=== PATIENT | male | born 1960 | race Caucasian/White ===

== ENCOUNTER 2017-11-25 16:15 | Observation (INO) ==
[2017-11-25] MEDS ORDERED: Nitroglycerin 1 INCH/GM PACKET TP ONE (16:30)
[2017-11-25] MEDS ORDERED: Aspirin 81 MG TAB.CHEW PO ONE (16:30)
[2017-11-25] MEDS ORDERED: Ondansetron 4 MG/2 ML VIAL IVP ONE (16:31)
--- NOTE | 2017-11-25 16:33 | Emergency Department Note ---
Disposition Clinical Impression: Chest pain Qualifiers: Chest pain type: unspecified Qualified Code(s): R07.9 - Chest pain, unspecified Hypertension Qualifiers: Hypertension type: unspecified Qualified Code(s): I10 - Essential (primary) hypertension Disposition: Admitted As Inpatient Condition: Fair Forms: ED Satisfaction Letter Chest Pain HPI - General Chief Complaint: ED Chest Pain Stated Complaint: Heart issues Time Seen by Provider: 11/25/17 16:19 Source: patient Mode of arrival: ambulatory Limitations: no limitations Vital Signs Reviewed: Yes Nursing Notes Reviewed: Yes - History of Present Illness HPI Narrative: 57-year-old male with a history of hypertension and tobacco use presents for evaluation of "heart issues". Patient states that he had left-sided nonexertional chest pressure last night that lasted a few moments with associated left arm numbness. Patient states that he noted this morning that he did not feel right. Patient's felt nauseous. Patient denies any vomiting or diaphoresis. Patient denies any shortness of breath. Patient states that he has never had a heart attack or stents placed. Patient's states he has never been worked up in the past related to his heart. Patient seen his's urgent care doctor earlier today was noted have high blood pressure. Patient denies any fevers or cough. Patient currently denies any chest pain. Severity scale (1-10): 3 - Related Data Home Medications Medication Instructions Recorded Confirmed Amlodipine Besylate 10 mg PO DAILY 09/14/16 09/14/16 Atenolol [Tenormin] 50 mg PO DAILY 09/14/16 09/14/16 Celecoxib [Celebrex] 200 mg PO DAILY 09/14/16 09/14/16 EPINEPHrine [Epipen] 0.3 mg IM AD PRN 09/14/16 09/14/16 Gemfibrozil [Lopid] 600 mg PO BID 09/14/16 09/14/16 Omeprazole [PriLOSEC] 20 mg PO BID 09/14/16 09/14/16 Solifenacin Succinate [Vesicare] 10 mg PO DAILY 09/14/16 09/14/16 Allergies Allergy/AdvReac Type Severity Reaction Status Date / Time LORENZA Inhibitors Allergy Swelling Verified 11/25/17 16:27 of Lip/Tongue/Throat All systems ED: reviewed and negative except as stated. Constitutional: Reports: as per HPI. Denies: fever Eyes: Reports: as per HPI ENT ED: Reports: as per HPI Cardiovascular: Reports: as per HPI, chest pain Respiratory: Reports: as per HPI. Denies: cough, dyspnea Gastrointestinal: Reports: as per HPI, nausea. Denies: abdominal pain, vomiting Genitourinary: Reports: as per HPI Musculoskeletal: Reports: as per HPI Integumentary: Reports: as per HPI Neurological: Reports: as per HPI Psychiatric: Reports: as per HPI Endocrine: Reports: as per HPI Hematological/Lymphatic: Reports: as per HPI Chest Pain PMH - Past Medical History Medical history: Reports: hyperlipidemia, hypertension, kidney stones, other Surgical history: Reports: other Psychiatric history: Reports: no psych history - Social History Smoking Status: Current every day smoker Alcohol use: Reports: rarely Drug use: Reports: none Physical Exam - General Limitations: no limitations General appearance: alert, in no apparent distress, obese - Head Head exam: atraumatic, normocephalic, normal inspection - Eye Eye exam: Present: normal appearance, PERRL, EOMI - ENT ENT exam: normal exam, normal oropharynx, mucous membranes moist - Neck Neck exam: Present: normal inspection - Chest Chest inspection: Present: normal inspection, symmetric chest wall rise - Respiratory Respiratory exam: Present: normal lung sounds bilaterally. Absent: respiratory distress - Cardiovascular Cardiovascular exam: Present: regular rate. Absent: systolic murmur - Abdominal Exam Abdominal exam: Present: soft, Non-Tender. Absent: tenderness - Extremities Exam Extremities exam: Present: normal inspection. Absent: pedal edema - Expanded Lower Extremity Exam Neurovascular/Tendon exam: Present: normal capillary refill - Neurological Exam Neurological exam: Present: alert - Psychiatric Psychiatric exam: Present: normal affect, normal mood - Skin Skin exam: Present: warm, dry, intact, normal color Course Course Narrative: Patient seen and examined. Patient appears to be in no acute distress. Patient does have a concerning history for ACS given left-sided chest pressure last night with associated nausea this morning. The patient does have risk factors. Patient will get cardiopulmonary evaluation. Disposition pending. Vital Signs Temperature 98.2 F 11/25/17 16:18 Pulse Rate 85 11/25/17 16:18 Respiratory Rate 16 11/25/17 16:18 Blood Pressure 156/110 11/25/17 16:18 O2 Sat by Pulse Oximetry 99 11/25/17 16:18 Temperature 98.2 F 11/25/17 16:18 Pulse Rate 85 11/25/17 16:18 Respiratory Rate 16 11/25/17 16:18 Blood Pressure 156/110 11/25/17 16:18 O2 Sat by Pulse Oximetry 99 11/25/17 16:18 Oxygen Delivery Oxygen Delivery Room Air Chest Pain - Lab Data Result diagrams: 11/25/17 16:39 11/25/17 16:39 Lab Results 11/25/17 11/25/17 Range/Units 16:39 16:39 WBC 8.9 (4.3-11.1) K/mcL RBC 5.97 H (4.19-5.50) M/mcL Hgb 16.4 (12.9-16.9) g/dL Hct 48.7 (37.5-50.1) % MCV 81.6 L (83.0-100.0) fL MCH 27.5 L (28.0-33.3) pg MCHC 33.7 (31.6-35.5) g/dL RDW 13.4 (11.5-14.5) % Plt Count 375 (140-400) K/mcL MPV 10.3 (9.4-12.4) fL Immature Gran % 0.3 (0-4) % Seg Neutrophils % 52.1 % Lymphocytes % 30.8 % Monocytes % 11.2 % Eosinophils % 4.3 % Basophils % 1.3 % Neutrophils # 4.6 (1.6-8.9) K/mcL Lymphocytes # 2.8 (0.6-4.6) K/mcL Monocytes # 1.0 (0.0-1.3) K/mcL Eosinophils # 0.4 (0.0-0.6) K/mcL Basophils # 0.1 (0.0-0.2) K/mcL Sodium 136 (136-145) mEq/L Potassium 3.7 (3.5-5.1) mEq/L Chloride 105 (98-107) mEq/L Carbon Dioxide 24 (23-29) mEq/L BUN 16 (6-20) mg/dL Creatinine 1.00 (0.70-1.30) mg/dL Est GFR ( Amer) > 60 (> 60) Est GFR (Non-Af Amer) > 60 (> 60) BUN/Creatinine Ratio 16 (6-26) Glucose 108 H (70-105) mg/dL Calculated Osmolality 284 (280-300) Calcium 9.4 (8.6-10.3) mg/dL - EKG Data EKG attestation: Yes I reviewed and interpreted this EKG. EKG shows normal: sinus rhythm Rate: normal Rhythm: NSR [place]/QRS: normal Interpretation: no acute changes, nonspecific ST-T wave changes Monty - Monty Situation: Demographics Background: Presenting Complaint Assessment: Vital Signs, Course and respsone to treatment, Patient/Family Expectation Recommendation: Barrier(s) to disposition, Recommendation based on pending studies, treatments, or consults S.Delvis Report Given to: Dr. Antonio Millan Repor Time: 17:08
[2017-11-25 16:49] LABS: Basophils # 0.1 K/mcL (0.0-0.2); Basophils % 1.3 %; Eosinophils # 0.4 K/mcL (0.0-0.6); Eosinophils % 4.3 %; Hematocrit 48.7 % (37.5-50.1); Hemoglobin 16.4 g/dL (12.9-16.9); Immature Granulocytes % 0.3 % (0-4); Lymphocytes # 2.8 K/mcL (0.6-4.6); Lymphocytes % 30.8 %; Mean Corpuscular HGB Conc 33.7 g/dL (31.6-35.5); Mean Corpuscular Hemoglobin 27.5 pg (28.0-33.3); Mean Corpuscular Volume 81.6 fL (83.0-100.0); Mean Platelet Volume 10.3 fL (9.4-12.4); Monocytes % 11.2 %; Neutrophils # 4.6 K/mcL (1.6-8.9); Platelet Count 375 K/mcL (140-400); Red Blood Count 5.97 M/mcL (4.19-5.50); Red Cell Distribution Width 13.4 % (11.5-14.5); Segmented Neutrophils % 52.1 %
--- NOTE | 2017-11-25 16:56 | Emergency Department Note ---
START Narrative - START START: I examined this patient and my medical decision-making was reviewed with the Resident Physician. I agree with the documented findings, disposition and treatment plan as described except to the extent set forth below. 57-year-old male presents emergency room for chest discomfort. So radiates to the left shoulder and left arm. Social but nausea. States he does not feel right. He has no documented coronary history. EKG did not show any significant findings. Patient saws urgent care doctor today and noted his blood pressure being elevated. He presents to the ER with the above complaints. Patient will likely benefit from admission for ACS rule out and stress test.
[2017-11-25 17:03] LABS: BUN/Creatinine Ratio 16 (6-26); Blood Urea Nitrogen 16 mg/dL (6-20); Calcium 9.4 mg/dL (8.6-10.3); Carbon Dioxide 24 mEq/L (23-29); Chloride 105 mEq/L (98-107); Glucose 108 mg/dL (70-105); Osmolality,Calculated 284 (280-300); Potassium 3.7 mEq/L (3.5-5.1); Sodium 136 mEq/L (136-145); eGFR For African Americans > 60 (> 60); eGFR For Non-African Americans > 60 (> 60)
[2017-11-25] MEDS ORDERED: Aspirin 81 MG TAB.CHEW ONE (17:13)
[2017-11-25] MEDS ORDERED: GI Cocktail 40 ML EACH PO ONE (17:43)
[2017-11-25] MEDS ORDERED: Naloxone 0.4 MG/ML INJ IVP PRN (17:43)
[2017-11-25] MEDS ORDERED: Acetaminophen 325 MG TABLET PO PRN (17:43)
--- NOTE | 2017-11-25 17:49 | Internal Med History&Physical ---
Date of Encounter: 11/25/17 Time of Encounter: 17:48 Assessment and Plan (1) Chest pain Current visit: Yes Status: Acute Atypical, r/o cardiac cause, patient described GERD sheree symptoms but has persistent nausea and light headedness with significant risk factors Initial EKG with no TW inversion or ST elevation or depression Initial troponin is negative Obtain ECHO and stress test am, NPO Continue ASA, check lipid panel a.m, encourage tobacco cessation No indication for cardiology eval at this time Qualifiers: Chest pain type: unspecified Qualified Code(s): R07.9 - Chest pain, unspecified (2) Tobacco abuse Current visit: Yes Status: Chronic NRT Cessation counselling provided (3) Morbid obesity with BMI of 45.0-49.9, adult Current visit: Yes Status: Chronic lifestyle changes (4) Hypertension Current visit: Yes Status: Chronic continue home meds Qualifiers: Hypertension type: unspecified Qualified Code(s): I10 - Essential (primary ) hypertension (5) GERD (gastroesophageal reflux disease) Current visit: Yes Status: Chronic start on daily PPI Give GI cocktail now Qualifiers: Esophagitis presence: without esophagitis Qualified Code(s): K21.9 - Gastro -esophageal reflux disease without esophagitis (6) DVT prophylaxis Current visit: Yes Status: Acute SQ heparin Internal Medicine - H&P: HPI Chief complaint: Lightheadedness. Admitted From: Home Plans for Post Hospital Care: Home History of present illness: Mr. Smith is a 57 year old male with heavy tobacco use, morbid obesity, hyperlipidemia, and hypertension. He presents to the ER with complaints of chest pain which she had one episode of last night while at rest, associated with lightheadedness and nausea. Patient reports chest pain was sharp and non- radiating and resolved spontaneously. No known relieving or aggravating factors. No associated diaphoresis or shortness of breath. He reports at work this morning, he started to feel lightheaded, associated with nausea and one episode of vomiting. The patient attributes the symptoms to consumption of onions. He has a history of GERD and he believes he is having reflux as a result of the denies had last night. He denies cough, dyspnea on exertion or at rest, or leg swelling. He has no abdominal pain. He has no neurologic, urologic symptoms. No change in bowel or urinary habits. He denies illicit drug use, smokes 1.5 packs of cigarette daily. He denies significant family hx of cardiac disease Workup in the ER was unremarkable. EKG reviewed personally by me with no ST segment changes. Patient to be placed in observation due to his multiple risk factors for coronary artery disease, he will be worked up for chest pain to rule out acute coronary syndrome. He is hemodynamically stable at this time. He is chest pain -free at this time. Past Med Surg Social Fam HX - Past Medical History Medical history: hyperlipidemia, hypertension, kidney stones, other Psychiatric history: no psych history - Past Surgical History Surgical History: other - Social History Smoking Status: Current every day smoker Smokeless Tobacco Status: No Alcohol use: rarely Drug use: none - Family History Mother Living Status: Still Living Hx Family Cardiac Disorders: No Hx Family Respiratory Disorders: No Hx Family Cancer: No Hx Family GI Disorders: No Hx Family Endocrine Disorder: No Hx Family Neuromuscular Disorders: No Hx Family Neurologic Disorders: No Hx Family HEENT Disorders: No Hx Family Autoimmune Disorders: No Father Living Status: Hx Family Cardiac Disorders: Yes (CHF) Hx Family Respiratory Disorders: No Hx Family Cancer: No Hx Family GI Disorders: No Hx Family Endocrine Disorder: Yes (Dm) Hx Family Neuromuscular Disorders: No Hx Family Neurologic Disorders: No Hx Family HEENT Disorders: No Hx Family Autoimmune Disorders: No Internal Medicine - H&P: Meds Amlodipine Besylate 10 mg PO DAILY 09/14/16 [History] Atenolol [Tenormin] 50 mg PO DAILY 09/14/16 [History] Celecoxib [Celebrex] 200 mg PO DAILY 09/14/16 [History] Gemfibrozil [Lopid] 600 mg PO BID 09/14/16 [History] Solifenacin Succinate [Vesicare] 10 mg PO DAILY 09/14/16 [History] Cetirizine HCl [Zyrtec] 10 mg PO DAILY 11/25/17 [History] Losartan/Hydrochlorothiazide [Hyzaar 100-25 Tablet] 1 each PO DAILY 11/25/17 [ History] 3 Allergy/AdvReac Type Severity Reaction Status Date / Time LORENZA Inhibitors Allergy Swelling Verified 11/25/17 16:27 of Lip/Tongue/Throat All Systems PM: A 10-system review of systems was performed and is negative for pertinent findings except as documented above in the HPI. - Constitutional Constitutional: no chills, no fever(s), no night sweats - EENT Eyes: no change in vision, no discharge, no pain, no photophobia Ears: no ear discharge, no ear pain, no tinnitus Nose, mouth and throat: no dysphagia, no nasal discharge, no neck pain, no sore throat - Cardiovascular Cardiovascular ROS IM: as per HPI - Respiratory Respiratory: as per HPI - Gastrointestinal Gastrointestinal: as per HPI - Musculoskeletal Musculoskeletal ROS IM: no numbness, no tingling - Integumentary Integumentary IM: no rash, no unusual bruising - Neurological Neurological ROS: no confusion, no convulsions, no focal weakness, no numbness, no tingling, no tremor(s) - Hematologic/Lymphatic Hematologic/Lymphatic: no easy bruising - Constitutional Vitals: Temp Pulse Resp BP Pulse Ox 98.2 F 89 16 154/99 94 11/25/17 17:47 11/25/17 17:47 11/25/17 17:47 11/25/17 17:47 11/25/17 17:47 General appearance: Present: A&O X 3, morbidly obese, no acute distress - Head Head exam: Present: atraumatic, normocephalic - Eye Eye exam: Present: PERRL, conjuntiva pink, sclera anicteric Pupils: Present: PERRL - Neck Neck exam general surgery: Present: supple, trachea midline. Absent: lymphadenopathy - Respiratory Respiratory exam: Present: CTAB. Absent: accessory muscle use, rales, rhonchi, wheezes - Cardiovascular Cardiovascular exam: Present: RRR, +S1, +S2. Absent: diastolic murmur, gallop, rubs, systolic murmur - GI/Abdominal GI/Abdominal exam: Present: normal bowel sounds, soft, no peritoneal signs. Absent: distended, tenderness - Extremities Exam Extremities exam: Present: warm, radial pulses palpable and symmetrical. Absent : calf tenderness, cyanotic, pedal edema - Neurological Exam Neurological exam: Present: alert, CN II-XII intact, oriented X3, no focal deficits. Absent: pronater drift, facial droop, speech deficit - Skin Skin exam: Present: dry, intact Internal Med - H&P Results - Labs CBC & Chem 7: 11/25/17 16:39 11/25/17 16:39
[2017-11-25] MEDS: Nicotine 21 MG PATCH.TD24 TD SCH (20:50)
[2017-11-25] MEDS: Loratadine 10 MG TABLET PO SCH (22:34)
[2017-11-26 01:43] LABS: Basophils # 0.2 K/mcL (0.0-0.2); Basophils % 1.9 %; Eosinophils # 0.4 K/mcL (0.0-0.6); Eosinophils % 4.9 %; Hematocrit 47.1 % (37.5-50.1); Hemoglobin 15.6 g/dL (12.9-16.9); Immature Granulocytes % 0.5 % (0-4); Lymphocytes % 34.9 %; Mean Corpuscular HGB Conc 33.1 g/dL (31.6-35.5); Mean Corpuscular Hemoglobin 27.4 pg (28.0-33.3); Mean Corpuscular Volume 82.8 fL (83.0-100.0); Mean Platelet Volume 10.1 fL (9.4-12.4); Monocytes # 1.1 K/mcL (0.0-1.3); Monocytes % 13.3 %; Neutrophils # 3.8 K/mcL (1.6-8.9); Platelet Count 337 K/mcL (140-400); Red Blood Count 5.69 M/mcL (4.19-5.50); Red Cell Distribution Width 13.5 % (11.5-14.5); Segmented Neutrophils % 44.5 %
[2017-11-26 02:03] LABS: BUN/Creatinine Ratio 16 (6-26); Blood Urea Nitrogen 16 mg/dL (6-20); Calcium 8.8 mg/dL (8.6-10.3); Carbon Dioxide 24 mEq/L (23-29); Chloride 106 mEq/L (98-107); Chol/HDL Ratio 6.2 (0-4.9); Cholesterol 155 mg/dL (< 200); Glucose 104 mg/dL (70-105); HDL Cholesterol 25 mg/dL (40-59); LDL Cholesterol,Calculated 89 mg/dL (0-99); Osmolality,Calculated 287 (280-300); Potassium 3.5 mEq/L (3.5-5.1); Sodium 138 mEq/L (136-145); Triglycerides 204 mg/dL (< 150); eGFR For African Americans > 60 (> 60); eGFR For Non-African Americans > 60 (> 60)
[2017-11-26] MEDS ORDERED: Regadenoson 0.4 MG/5 ML SYRINGE IVP ONE (08:03)
[2017-11-26] MEDS ORDERED: Loratadine 10 MG TABLET PO SCH (09:00)
[2017-11-26] MEDS ORDERED: Perflutren Lipid Microsphere 1.3 ML in 0.9 % Sodium Chloride 8.7 ML IVP ONE (10:05)
[2017-11-26] MEDS ORDERED: Perflutren Lipid Microsphere 2 ML VIAL ONE (10:08)
[2017-11-26] MEDS: amLODIPine 5 MG TABLET PO SCH (11:20)
[2017-11-26] MEDS: Nicotine 21 MG PATCH.TD24 TD SCH (11:20)
[2017-11-26] MEDS: Losartan/HCTZ 50-12.5 TABLET PO SCH (11:20)
--- NOTE | 2017-11-26 17:00 | Internal Med Progress Note ---
Date of Encounter: 11/26/17 Time of Encounter: 16:57 - Assessment and plan (1) Chest pain Current Visit: Yes Status: Acute Assessment and plan: Atypical S pain, r/o cardiac cause, patient described GERD like symptoms but has persistent nausea and light headedness with significant risk factors Initial EKG with no T-Wave inversion or ST elevation or depression Troponins negative ECHO obtained 2 step stress test in progress Continue ASA lipid panel reviewed encourage tobacco cessation Cardiac monitoring Qualifiers: Chest pain type: unspecified Qualified Code(s): R07.9 - Chest pain, unspecified (2) DVT prophylaxis Current Visit: Yes Status: Acute Assessment and plan: Patient is ambulatory encourage ambulation 3 times a day and when necessary (3) GERD (gastroesophageal reflux disease) Current Visit: Yes Status: Chronic Assessment and plan: No complaints of GERD at this time Continue Prilosec Qualifiers: Esophagitis presence: without esophagitis Qualified Code(s): K21.9 - Gastro -esophageal reflux disease without esophagitis (4) Hypertension Current Visit: Yes Status: Chronic Assessment and plan: Stable, continue home medications Qualifiers: Hypertension type: unspecified Qualified Code(s): I10 - Essential (primary ) hypertension (5) Tobacco abuse Current Visit: Yes Status: Chronic Assessment and plan: Cessation education - Subjective Interval history: Patient fully dressed and up walking in the [place]. He is not sure if he wants to stay or not for the second step of the stress test which we done a morning. He does have some musculoskeletal type pain to the rib cage medial to his nipple line which is reproducible to touch. He denies any shortness of breath, dizziness, blurred vision, headache, abdominal pain or changes in bowel or bladder. He has no questions regarding the plan of care. - Constitutional Vitals: Temp Pulse Resp BP Pulse Ox 97.5 F L 57 16 150/84 94 11/26/17 15:08 11/26/17 15:08 11/26/17 15:08 11/26/17 15:08 11/26/17 15:08 General appearance: Present: cooperative, A&O X 3, no acute distress, obese, answers questions appropriately - Head Head exam: Present: atraumatic, normocephalic - Eye Eye exam: Present: conjuntiva pink, sclera anicteric - Neck Neck exam general surgery: Present: supple, trachea midline. Absent: lymphadenopathy - Respiratory Respiratory exam: Present: chest wall tenderness, CTAB. Absent: accessory muscle use, rales, rhonchi, wheezes Additional comments: Tender on left anterior rib cage parallel to the nipple line - Cardiovascular Cardiovascular exam: Present: RRR, +S1, +S2. Absent: diastolic murmur, gallop, rubs, systolic murmur - GI/Abdominal GI/Abdominal exam: Present: hernia, normal bowel sounds, soft, no peritoneal signs. Absent: distended, tenderness Additional comments: Protuberant abdomen with umbilical hernia - Extremities Exam Extremities exam: Present: warm, radial pulses palpable and symmetrical. Absent : calf tenderness, cyanotic, pedal edema - Neurological Exam Neurological exam: Present: oriented X3, no focal deficits. Absent: pronater drift, facial droop, speech deficit - Skin Skin exam: Present: dry, intact, warm Internal Medicine: Result - Labs CBC & Chem 7: 11/26/17 01:36 11/26/17 01:36 Labs: Short CBC 11/26/17 Range/Units 01:36 WBC 8.6 (4.3-11.1) K/mcL Hgb 15.6 (12.9-16.9) g/dL Hct 47.1 (37.5-50.1) % Plt Count 337 (140-400) K/mcL Neutrophils # 3.8 (1.6-8.9) K/mcL BMP 11/26/17 01:36 Sodium 138 Potassium 3.5 Chloride 106 Carbon Dioxide 24 BUN 16 Creatinine 1.01 Glucose 104 Calcium 8.8 Cardiac Enzymes 11/25/17 11/26/17 Range/Units 20:12 01:36 Troponin I < 0.03 < 0.03 (< 0.04) ng/mL - Impressions Impressions Echocardiogram 11/26/17 07:00 Impressions: LVEF 60-65%. Mild concentric left ventricular hypertrophy. Mild left ventricular diastolic dysfunction. Definity echo contrast was used. RV size is not well visualized. Function appears normal. Mild pulmonic regurgitation. No pulmonary hypertension. Left Ventricular Wall Motion: Rest Echo Findings All wall segments showed normal motion. Findings: Study Quality * Technically adequate exam. ECG Findings * Normal sinus rhythm. Left Ventricle * LVEF 60-65%. * Mild concentric left ventricular hypertrophy. * Mild left ventricular diastolic dysfunction. * Definity echo contrast was used. Right Ventricle * RV size is not well visualized. Function appears normal. Left Atrium * Normal left atrial size. Right Atrium * Normal right atrial size. Aortic Valve * No aortic regurgitation. * Aortic valve not well visualized. * Mildly calcified aortic valve leaflets. * No aortic stenosis. Mitral Valve * No mitral regurgitation. * No mitral stenosis. * Normal mitral valve structure - as seen in the PLAX view. In other windows, the MV is not well visualized. Tricuspid Valve * Tricuspid valve not well visualized. * No tricuspid regurgitation. * Estimated RA pressure is 3 mmHg. Pulmonic Valve * Pulmonic valve is not well visualized. * No pulmonic stenosis. * Mild pulmonic regurgitation. Pulmonary Artery * Pulmonary artery not well visualized. Aorta * Normally sized aortic root. Pericardium * There is no pericardial effusion present. Interatrial Septum * No evidence of PFO by color Doppler. IVC * Normal IVC dimensions and inspiratory collapse. Consult Discharge Plan - Plan Referrals: Deirdre Radford, [facility] [Primary Care Provider] -
[2017-11-26] MEDS: Loratadine 10 MG TABLET PO SCH (20:25)
--- NOTE | 2017-11-27 10:14 | Electrocardiograph Report ---
[place] [id number] Test Date: 2017-11-25 Pat Name: Clarke Smith Department: 104 Room: 3B24 Gender: M Executive Search Consultant: : 1960 Requested By: Francisco Quiñones Order Number: [id number] Reading MD: Anna Mock Measurements Intervals [place] Rate: 85 P: 55 CA: 178 QRS: 44 QRSD: 102 T: 111 QT: 338 QTc: 380 Interpretive Statements SINUS RHYTHM NONSPECIFIC ST-WAVE ABNORMALITY POOR R WAVE PROGRESSION PRECORDIAL LEADS Electronically Signed On 11-27-2017 10:12:47 EST by Anna Mock
[2017-11-27] MEDS: Losartan/HCTZ 50-12.5 TABLET PO SCH (11:45)
[2017-11-27] MEDS: Nicotine 21 MG PATCH.TD24 TD SCH (11:46)
[2017-11-27] MEDS: amLODIPine 5 MG TABLET PO SCH (11:46)
[2017-11-27] MEDS ORDERED: Ondansetron 4 MG/2 ML VIAL IVP PRN (15:22)
--- NOTE | 2017-11-27 17:07 | Internal Med Progress Note ---
Date of Encounter: 11/27/17 Time of Encounter: 17:05 - Assessment and plan (1) Chest pain Current Visit: Yes Status: Acute Assessment and plan: Atypical chest pain, r/o cardiac cause, patient described GERD like symptoms but has persistent nausea and light headedness with significant risk factors Initial EKG with no T-Wave inversion or ST elevation or depression Troponins negative ECHO obtained 2 step stress test completed and reported as small sized moderate intensity reversible inferior perfusion defect suggestive of ischemia. Continue ASA lipid panel reviewed encourage tobacco cessation Cardiac monitoring Cardiology consult Qualifiers: Chest pain type: unspecified Qualified Code(s): R07.9 - Chest pain, unspecified (2) DVT prophylaxis Current Visit: Yes Status: Acute Assessment and plan: Patient is ambulatory,encourage ambulation 3 times a day Add heparin subcut secondary to extended stay (3) GERD (gastroesophageal reflux disease) Current Visit: Yes Status: Chronic Assessment and plan: No complaints of GERD Continue Prilosec Qualifiers: Esophagitis presence: without esophagitis Qualified Code(s): K21.9 - Gastro -esophageal reflux disease without esophagitis (4) Hypertension Current Visit: Yes Status: Chronic Assessment and plan: Stable, continue home medications Decreased atenolol dose secondary to low heart rate Qualifiers: Hypertension type: unspecified Qualified Code(s): I10 - Essential (primary ) hypertension (5) Tobacco abuse Current Visit: Yes Status: Chronic Assessment and plan: Cessation education advised - Subjective Interval history: Patient seen after his stress test. He still complains of some left rib pain. It is reproducible to palpation. He now says that he fell and hit that side sometime ago and thinks he has cracked a rib. He denies any fever, chills, chest pressure, shortness of breath, headache, changes in bowel or bladder, or syncope. He did tell the aid he was a little nauseated but declined Zofran that was offered. He did eat his lunch. He is aware of positive stress findings and is awaiting cardiology to talk to him. . - Constitutional Vitals: Temp Pulse Resp BP Pulse Ox 97.7 F 54 18 147/91 95 11/27/17 15:29 11/27/17 15:29 11/27/17 15:29 11/27/17 15:29 11/27/17 15:29 General appearance: Present: cooperative, A&O X 3, pleasant, no acute distress, obese, answers questions appropriately - Head Head exam: Present: atraumatic, normocephalic - Eye Eye exam: Present: conjuntiva pink, sclera anicteric - Neck Neck exam general surgery: Present: supple, trachea midline. Absent: lymphadenopathy - Respiratory Respiratory exam: Present: CTAB. Absent: accessory muscle use, rales, rhonchi, wheezes - Cardiovascular Cardiovascular exam: Present: RRR, +S1, +S2. Absent: diastolic murmur, gallop, rubs, systolic murmur Additional comments: Chest wall tenderness over rib on the left side at nipple line - GI/Abdominal GI/Abdominal exam: Present: normal bowel sounds, soft, no peritoneal signs. Absent: distended, tenderness Additional comments: Umbilical hernia and very protuberant - Extremities Exam Extremities exam: Present: warm, radial pulses palpable and symmetrical. Absent : calf tenderness, cyanotic, pedal edema - Neurological Exam Neurological exam: Present: oriented X3, no focal deficits. Absent: pronater drift, facial droop, speech deficit - Skin Skin exam: Present: dry, intact, warm Additional comments: [facility] Internal Medicine: Result - Labs CBC & Chem 7: 11/26/17 01:36 11/26/17 01:36 - Impressions Impressions Ribs X-Ray 11/27/17 09:56 IMPRESSION: No evidence of acute left-sided rib fractures. D/ / Philip Martin MD / Philip Martin MD Interpreting Provider: Philip Martin MD Consult Discharge Plan - Plan Referrals: Deirdre Radford, [facility] [Primary Care Provider] -
[2017-11-27] MEDS: Loratadine 10 MG TABLET PO SCH (20:14)
[2017-11-27] MEDS: *HR* Heparin 5,000 UNIT/ML VIAL SQ SCH (21:35)
[2017-11-28] MEDS: *HR* Heparin 5,000 UNIT/ML VIAL SQ SCH ×2 (06:33→13:04)
[2017-11-28] MEDS: Losartan/HCTZ 50-12.5 TABLET PO SCH (08:49)
[2017-11-28] MEDS: amLODIPine 5 MG TABLET PO SCH (08:49)
[2017-11-28] MEDS: Nicotine 21 MG PATCH.TD24 TD SCH (08:49)
[2017-11-28 10:43] VITALS: BP 160/89
--- NOTE | 2017-11-28 12:19 | Cardiology Consult Note ---
<Laurence Wilder - Last Filed: 11/28/17 12:28> Date of Encounter: 11/28/17 Time of Encounter: 11:30 Assessment and Plan (1) Abnormal stress test Status: Acute Patient presented with atypical chest pain symptoms. No ST/T wave abnormalities on ECG. Troponin negative. Has been pain free since admission. Nuclear stress: moderate reversible perfusion defect involving the inferior wall. TTE: EF 60-65%, normal wall motion. Risk factors for CAD including tobacco use, HTN, HLD, and obesity. Recommend LHC with possible PCI, however patient declines and elects to proceed with trial of medical therapy. Will add asa and statin. Continue betablocker. Risk factor modification emphasized including tobacco cessation. Follow-up with Cardiology in 3-4 weeks. (2) Tobacco abuse Status: Chronic tobacco cessation counseling advised. Discussion w patient/family: The assessment and plan as outlined above was discussed with the patient and/or family members who expressed understanding and agreement. All questions were answered. Thank you for involving us in the care of your patient. Please call with any questions. The patient will be discussed and reviewed with Dr. Nunez; changes to be made accordingly. History of Present Illness Consult date: 11/28/17 Requesting physician: Ramila Younger Consult reason: Abnormal stress test Chief complaint: Dizziness History of present illness: Mr. Smith is a 57 year old male with PMHx significant for HTN, HLD, and tobacco use who presented to the ED with dizziness and lightheadedness. Associated symptoms include nausea with one episode of vomiting. He denies any chest pain or discomfort. He reports recently difficulty controlling blood pressures over the past several weeks. He does note frequent episode of GERD, however each episode triggered by food. Stress test was ordered and found to be abnormal--moderate inferior perfusion defect. Past Med Surg Social Fam HX - Past Medical History Attestation: Yes The following information was validated with the patient. Source: patient Medical history: hyperlipidemia, hypertension, kidney stones, other Psychiatric history: no psych history - Past Surgical History Surgical History: cholecystectomy, other - Social History Smoking Status: Current every day smoker Packs per day: 1.5 Smokeless Tobacco Status: No Alcohol use: rarely Drug use: none - Family History Mother Living Status: Still Living Hx Family Cardiac Disorders: Yes Hx Family Respiratory Disorders: No Hx Family Cancer: No Hx Family GI Disorders: No Hx Family Endocrine Disorder: No Hx Family Neuromuscular Disorders: No Hx Family Neurologic Disorders: No Hx Family HEENT Disorders: No Hx Family Autoimmune Disorders: No Father Living Status: Age at : 76 Cause of : CHF Hx Family Cardiac Disorders: Yes (CHF) Hx Family Respiratory Disorders: No Hx Family Cancer: No Hx Family GI Disorders: No Hx Family Endocrine Disorder: Yes (Dm) Hx Family Neuromuscular Disorders: No Hx Family Neurologic Disorders: No Hx Family HEENT Disorders: No Hx Family Autoimmune Disorders: No Medications and Allergies Amlodipine Besylate 10 mg PO DAILY 09/14/16 [History] Celecoxib [Celebrex] 200 mg PO DAILY 09/14/16 [History] Solifenacin Succinate [Vesicare] 10 mg PO DAILY 09/14/16 [History] Cetirizine HCl [Zyrtec] 10 mg PO DAILY 11/25/17 [History] Losartan/Hydrochlorothiazide [Hyzaar 100-25 Tablet] 1 each PO DAILY 11/25/17 [ History] Aspirin Enteric Coated [Aspirin EC] 81 mg PO DAILY tablet. 11/28/17 [Rx] Atenolol [Tenormin] 25 mg PO DAILY #30 tablet 11/28/17 [Rx] Atorvastatin [Lipitor] 40 mg PO HS #30 tablet 11/28/17 [Rx] Lidocaine Patch [Lidoderm 5% patch] 1 each TP DAILY #10 adh..patch 11/28/17 [Rx] Omeprazole [PriLOSEC] 20 mg PO DAILY@0630 #30 capsule. 11/28/17 [Rx] 3 Allergy/AdvReac Type Severity Reaction Status Date / Time LORENZA Inhibitors Allergy Swelling Verified 11/25/17 16:27 of Lip/Tongue/Throat All Systems Review: A 10-system review of systems was performed and is negative for pertinent findings except as documented above in the HPI. - Cardiovascular Cardiovascular: as per HPI Physical Examination Vital Signs, Last 4 Hours Temp Pulse Resp BP Pulse Ox 11/28/17 10:42 97.7 F 59 16 160/89 97 General: Conversant, No Apparent Distress, Other (morbidly obese) HEENT: Atraumatic, Normocephaly Cardiac: Reg Rate and Rhythm, Normal S1 and S2 Lungs: Normal Breath Sounds Neuro: Alert and responsive Abdomen: Soft Skin: No rashes noted on visualized skin Musculoskeletal: No Chest Wall Tenderness Extremities: No Edema, Normal Pulses Results 11/26/17 01:36 11/26/17 01:36 Active Medications Acetaminophen (Tylenol) 650 mg PO Q6HR PRN PRN Reason: Mild Pain (1-3) Stop: 05/27/18 17:44 Last Admin: 11/27/17 20:13 Dose: 650 mg Amlodipine Besylate (Norvasc) 10 mg PO DAILY [facility] Stop: 05/28/18 09:01 Last Admin: 11/28/17 08:49 Dose: 10 mg Atenolol (Tenormin) 25 mg PO DAILY [facility] Stop: 05/29/18 11:42 Last Admin: 11/28/17 08:49 Dose: 25 mg Gemfibrozil (Lopid) 600 mg PO BID [facility] Stop: 05/27/18 21:01 Last Admin: 11/28/17 08:49 Dose: 600 mg HCTZ/Losartan Potassium (Hyzaar 50/12.5) 2 each PO DAILY [facility] Stop: 05/28/18 09:01 Last Admin: 11/28/17 08:49 Dose: 2 each Heparin Sodium (Porcine) (Heparin) 5,000 unit SQ Q8HCO [facility] Stop: 05/29/18 22:01 Last Admin: 11/28/17 06:33 Dose: 5,000 unit Lidocaine HCl (Lidoderm 5% Patch) 1 each TP DAILY [facility] Stop: 05/30/18 12:16 Loratadine (Claritin) 10 mg PO HS [facility] Stop: 05/27/18 21:06 Last Admin: 11/27/17 20:14 Dose: 10 mg Naloxone HCl (Narcan) 0.4 mg IVP Q2MIN PRN PRN Reason: Opioid Reversal Stop: 05/27/18 17:44 Nicotine (Nicoderm) 21 mg TD DAILY [facility] PRN Reason: Protocol Stop: 05/27/18 18:31 Last Admin: 11/28/17 08:49 Dose: Not Given Omeprazole (Prilosec) 20 mg PO DAILY@0630 [facility] PRN Reason: Protocol Stop: 05/28/18 06:31 Last Admin: 11/28/17 06:33 Dose: 20 mg Ondansetron HCl (Zofran) 4 mg IVP Q8HR PRN; Protocol PRN Reason: Nausea Oxybutynin Chloride (Ditropan) 5 mg PO TID [facility] Stop: 05/28/18 09:01 Last Admin: 11/28/17 08:49 Dose: 5 mg - Imaging and Cardiology Cardiac cath: report reviewed Other Results: 12 hour tele: avg HR=62 SR. No significant event. - EKG Interpretation EKG results cardiology: personally reviewed Consult Discharge Plan - Plan Instructions: Atenolol (By mouth), Omeprazole (By mouth), Atorvastatin (By mouth), Lidocaine Patch (On the skin), Chest Pain (DC), How to Stop Smoking (DC) , Chronic Hypertension (DC) Referrals: Deirdre Radford, [facility] [Primary Care Provider] - Prescriptions: Atenolol [Tenormin] 25 mg PO DAILY #30 tablet Atorvastatin [Lipitor] 40 mg PO HS #30 tablet Lidocaine Patch [Lidoderm 5% patch] 1 each TP DAILY #10 adh..patch Omeprazole [PriLOSEC] 20 mg PO DAILY@0630 #30 capsule. <Scotty Nunez - Last Filed: 11/28/17 22:49> Date of Encounter: 11/28/17 Time of Encounter: 15:00 - Attending Attestation I have personally performed a face to face evaluation on this patient. I have reviewed and agree with the care plan. History and Exam by me shows: CC: Chest pain Pt presented to ER for evaluation of dizziness and lightheadedness, on and off over last several days, associated with nausea and emesis x 2. Pt denies chest pain, pressure or shortness of breath. He reports episodes of mid epigatric pain, burning sensation, occurs several hours after meals, lasts twenty to thirty minutes, associated with nausea and shortness of breath. He does not get pain after every meal, but occurs at least five times a week. He has noticed increased shortness of breath with exertion and increased fatigue over last several weeks. He underwent provacative stress imaging, found to have a moderate sized inferior perfusion defect. Physical Exam: reviewed, agree with above 'IMP; 1. Abnormal stress test, with inducible ischemia, and chest pain after meals suggestive of anginial equivalent. Recommended [facility], pt declnies at present, but is willing to return for left heart cath/possible in next three to four days. Discussed medical tx until [facility], will stop smoking and not return to work until diagnostic imaging complete. 2. Hypertension : not well controlled, will monitor with addition of beta blockade 3. Morbid Obesity 4. Hyperlipidemia, non-compliant with dietary restrictions. Discussed increased risk of VT, arhythmia and pending evaluation of coronary anatomy, instructed in use of Sl NTG, recommendations to call 911 if chest pain not relieved with one sublingual ntg. Assessment and Plan Discussion w patient/family: The assessment and plan as outlined above was discussed with the patient and/or family members who expressed understanding and agreement. All questions were answered. Thank you for involving us in the care of your patient. Please call with any questions. History of Present Illness History of present illness: Mr. Smith is a 57 year old male All Systems Review: A 10-system review of systems was performed and is negative for pertinent findings except as documented above in the HPI. Results 11/26/17 01:36 11/26/17 01:36
--- NOTE | 2017-11-28 13:41 | Discharge Summary ---
Date of Encounter: 11/28/17 Time of Encounter: 13:39 - Discharge Diagnosis (1) Chest pain Priority: Primary Status: Acute Comments: Patient presented with atypical chest pain symptoms. No ST/T wave abnormalities on ECG. Troponin negative. Has been pain free since admission. Nuclear stress: moderate reversible perfusion defect involving the inferior wall. TTE: EF 60-65%, normal wall motion. Risk factors for CAD including tobacco use, HTN, HLD, and obesity. Recommend LHC with possible PCI, however patient declines and elects to proceed with trial of medical therapy. Will add asa and lipitor, stop lopid. Continue betablocker. Risk factor modification emphasized including tobacco cessation. Follow-up with Cardiology in 3-4 weeks. Left rib pain/ache persistent, dedicated rib xray negative, likely musculoskeletal in nature,apply warm compress, lidocaine patch Qualifiers: Chest pain type: unspecified Qualified Code(s): R07.9 - Chest pain, unspecified (2) GERD (gastroesophageal reflux disease) Priority: Secondary Status: Chronic Comments: no complaints of GERD, continue PPI Qualifiers: Esophagitis presence: without esophagitis Qualified Code(s): K21.9 - Gastro -esophageal reflux disease without esophagitis (3) Hypertension Priority: Primary Status: Chronic Comments: controlled on decreased dose of tenormin, stable today Qualifiers: Hypertension type: unspecified Qualified Code(s): I10 - Essential (primary ) hypertension (4) Tobacco abuse Priority: Primary Status: Chronic Comments: obacco cessation counseling advised. - Discharge Medications Prescriptions: Atenolol [Tenormin] 25 mg PO DAILY #30 tablet Atorvastatin [Lipitor] 40 mg PO HS #30 tablet Lidocaine Patch [Lidoderm 5% patch] 1 each TP DAILY #10 adh..patch Omeprazole [PriLOSEC] 20 mg PO DAILY@0630 #30 capsule.dr Home Medications: Amlodipine Besylate 10 mg PO DAILY 09/14/16 [History] Celecoxib [Celebrex] 200 mg PO DAILY 09/14/16 [History] Solifenacin Succinate [Vesicare] 10 mg PO DAILY 09/14/16 [History] Cetirizine HCl [Zyrtec] 10 mg PO DAILY 11/25/17 [History] Losartan/Hydrochlorothiazide [Hyzaar 100-25 Tablet] 1 each PO DAILY 11/25/17 [ History] Aspirin Enteric Coated [Aspirin EC] 81 mg PO DAILY tablet. 11/28/17 [Rx] Atenolol [Tenormin] 25 mg PO DAILY #30 tablet 11/28/17 [Rx] Atorvastatin [Lipitor] 40 mg PO HS #30 tablet 11/28/17 [Rx] Lidocaine Patch [Lidoderm 5% patch] 1 each TP DAILY #10 adh..patch 11/28/17 [Rx] Omeprazole [PriLOSEC] 20 mg PO DAILY@0630 #30 capsule. 11/28/17 [Rx] Allergies/Adverse Reactions: 3 Allergy/AdvReac Type Severity Reaction Status Date / Time LORENZA Inhibitors Allergy Swelling Verified 11/25/17 16:27 of Lip/Tongue/Throat Procedures/tests Complete & Pending: Procedures Performed prior 72 hours Category Date Time Status NM lauri perf SPECT multi [NM] Routine Exams 11/26/17 07:00 Taken EV echocardiogram w enhance Routine Y 11/26/17 07:00 Completed SP pharm nuclear stress Routine Y 11/26/17 07:45 Completed Date of admission: 11/25/17 17:13 Primary care physician: Deirdre Radford CNP Consults: 11/27/17 10:41 Consult to Cardiology [CONS] Routine Comment: Consulting Provider: Cardiology Peri Reason for Consult: ischemia on stress test Time Notified: 10:41 Call Completed: Yes Discharging clinician: Ramila Younger Anticipated date of discharge: 11/28/17 - Patient Status Disposition: Home, Self-Care Condition: Fair Functional capacity at discharge: independent ambulation Overall status at discharge: patient is progressing back to baseline - Discharge Instructions Follow Up With: Deirdre Radford CNP [Primary Care Provider] - - Diet and Activity Activity: resume usual activities as tolerated Diet: advance to your usual diet Interval History: Patient still with left rib pain, no chest pain, SOB, abdominal pain, fever, chills, palpitations, or other complaints. Discussed treatment options with cardiology and wants to go home on medical management. Hospital course: please see assessment and plan - Time Spent with Patient Total time spent providing and/or coordinating discharge services: Less than 30 minutes - Constitutional Vitals: Temp Pulse Resp BP Pulse Ox 97.7 F 59 16 160/89 97 11/28/17 10:42 11/28/17 10:42 11/28/17 10:42 11/28/17 10:42 11/28/17 10:42 General appearance: Present: cooperative, A&O X 3, pleasant, no acute distress, obese, answers questions appropriately - Head Head exam: Present: atraumatic, normocephalic - Eye Eye exam: Present: conjuntiva pink, sclera anicteric - Neck Neck exam general surgery: Present: supple, trachea midline. Absent: lymphadenopathy - Respiratory Respiratory exam: Present: chest wall tenderness, CTAB. Absent: accessory muscle use, rales, rhonchi, wheezes Additional comments: left rib pain with palpitation - Cardiovascular Cardiovascular exam: Present: RRR, +S1, +S2. Absent: diastolic murmur, gallop, rubs, systolic murmur - GI/Abdominal GI/Abdominal exam: Present: normal bowel sounds, soft, no peritoneal signs. Absent: distended, tenderness - Extremities Exam Extremities exam: Present: warm, radial pulses palpable and symmetrical. Absent : calf tenderness, cyanotic, pedal edema - Neurological Exam Neurological exam: Present: oriented X3, no focal deficits. Absent: pronater drift, facial droop, speech deficit - Skin Skin exam: Present: dry, intact, warm
[2017-11-29] MEDS ORDERED: Aspirin Enteric Coated 81 MG Tablet PO SCH (09:00)
== END 2017-11-28 15:15 | disposition home or self-care (01) ==
LOC: EMEROO 16:15 → 3BNU 16:15
PROVIDERS: ADMIT Internal Medicine; ATTEND Registered Nurse

== ENCOUNTER 2017-11-29 08:24 | Observation (INO) ==
[2017-11-29] MEDS ORDERED: Ondansetron 4 MG/2 ML VIAL IVP ONE (08:28)
[2017-11-29] MEDS ORDERED: Aspirin 81 MG TAB.CHEW PO ONE (08:28)
[2017-11-29 08:54] LABS: Basophils # 0.1 K/mcL (0.0-0.2); Basophils % 1.4 %; Eosinophils # 0.3 K/mcL (0.0-0.6); Eosinophils % 3.2 %; Hematocrit 49.4 % (37.5-50.1); Hemoglobin 16.2 g/dL (12.9-16.9); Immature Granulocytes % 0.5 % (0-4); Lymphocytes # 1.9 K/mcL (0.6-4.6); Lymphocytes % 23.2 %; Mean Corpuscular HGB Conc 32.8 g/dL (31.6-35.5); Mean Corpuscular Volume 82.2 fL (83.0-100.0); Mean Platelet Volume 10.3 fL (9.4-12.4); Monocytes # 0.8 K/mcL (0.0-1.3); Monocytes % 9.9 %; Neutrophils # 5.2 K/mcL (1.6-8.9); Platelet Count 371 K/mcL (140-400); Red Blood Count 6.01 M/mcL (4.19-5.50); Red Cell Distribution Width 13.3 % (11.5-14.5); Segmented Neutrophils % 61.8 %
[2017-11-29 09:04] LABS: Activated Partial Thrombo Time 28.4 Seconds (26.0-36.0)
[2017-11-29 09:27] LABS: Calcium 9.3 mg/dL (8.6-10.3); Carbon Dioxide 25 mEq/L (23-29); Chloride 104 mEq/L (98-107); Potassium 3.8 mEq/L (3.5-5.1); Sodium 137 mEq/L (136-145)
[2017-11-29 09:33] LABS: BUN/Creatinine Ratio 18 (6-26); Blood Urea Nitrogen 20 mg/dL (6-20); Glucose 117 mg/dL (70-105); Osmolality,Calculated 288 (280-300); eGFR For African Americans > 60 (> 60); eGFR For Non-African Americans > 60 (> 60)
[2017-11-29] MEDS ORDERED: Nitroglycerin 0.4 MG TAB.SUBL SL PRN (09:51)
[2017-11-29] MEDS ORDERED: Ipratropium/Albuterol Neb 3 ML IH ONE (09:51)
[2017-11-29] MEDS ORDERED: methylPREDNISolone 125 MG/2 ML VIAL IVP ONE (09:51)
--- NOTE | 2017-11-29 10:22 | Emergency Department Note ---
Disposition Clinical Impression: Chest pain Qualifiers: Chest pain type: unspecified Qualified Code(s): R07.9 - Chest pain, unspecified COPD (chronic obstructive pulmonary disease) Qualifiers: COPD type: unspecified COPD Qualified Code(s): J44.9 - Chronic obstructive pulmonary disease, unspecified Disposition: Admitted As Inpatient Condition: Fair Referrals: Deirdre Radford, [employer] [Primary Care Provider] - Forms: ED Satisfaction Letter Time of Disposition: 10:48 Chest Pain HPI - General Chief Complaint: ED Chest Pain Stated Complaint: Chest Pain Time Seen by Provider: 11/29/17 08:26 Source: patient, EMS Mode of arrival: EMS Limitations: no limitations Vital Signs Reviewed: Yes Nursing Notes Reviewed: Yes - History of Present Illness HPI Narrative: 57-year-old male presents to the emergency department complaining of chest pain. He was recently discharged from the hospital on Wednesday and scheduled for a left heart catheterization to be done on Wednesday. Patient does have history of high blood pressure as well as diabetes and hypercholesterol. He did not take any aspirins prior to coming here. He did have a nitroglycerin patch on that he was discharged with. Patient says the chest pain is still 4 out of 10 Harper pressure left side of his chest nonradiating is no nausea or vomiting or arm pain or jaw pain. Patient otherwise has no point including no fevers, nausea, vomiting, chills, abdominal pain, no changes in bowel movement or pain with urination or pain or tingling going down the arms or legs or any generalized weakness. Patient does have history of COPD and says usual shortness of breath is a could be having a COPD exacerbation on top of this. Severity scale (1-10): 2 - Related Data Home Medications Medication Instructions Recorded Confirmed Amlodipine Besylate 10 mg PO DAILY 09/14/16 11/25/17 Celecoxib [Celebrex] 200 mg PO DAILY 09/14/16 11/25/17 Cetirizine HCl [Zyrtec] 10 mg PO DAILY 11/25/17 11/25/17 Losartan/Hydrochlorothiazide 1 each PO DAILY 11/25/17 11/25/17 [Hyzaar 100-25 Tablet] Omeprazole [PriLOSEC] 20 mg PO DAILY 11/29/17 11/29/17 Ranitidine HCl [Heartburn Relief] 150 mg PO DAILY 11/29/17 11/29/17 Previous Rx's Medication Instructions Recorded Aspirin Enteric Coated [Aspirin EC] 81 mg PO DAILY tablet. 11/28/17 Atenolol [Tenormin] 25 mg PO DAILY #30 tablet 11/28/17 Atorvastatin [Lipitor] 40 mg PO HS #30 tablet 11/28/17 Lidocaine Patch [Lidoderm 5% patch] 1 each TP DAILY #10 adh..patch 11/28/17 Allergies Allergy/AdvReac Type Severity Reaction Status Date / Time LORENZA Inhibitors Allergy Swelling Verified 11/25/17 16:27 of Lip/Tongue/Throat Review of Systems: 10 point review of systems done and negative unless otherwise stated in history of present illness. All systems ED: reviewed and negative except as stated. Review of Systems: As Per HPI Chest Pain PMH - Past Medical History Medical history: Reports: hyperlipidemia, hypertension, kidney stones Surgical history: Reports: cholecystectomy, other Psychiatric history: Reports: no psych history - Social History Smoking Status: Current every day smoker Alcohol use: Reports: rarely Drug use: Reports: none Physical Exam - General Limitations: no limitations General appearance: alert, in no apparent distress - Head Head exam: atraumatic, normocephalic, normal inspection - Eye Eye exam: Present: normal appearance, PERRL, EOMI - ENT ENT exam: normal exam, normal oropharynx, mucous membranes moist - Neck Neck exam: Present: normal inspection, full ROM, trachea midline - Chest Chest inspection: Present: normal inspection, symmetric chest wall rise - Respiratory Respiratory exam: Present: normal lung sounds bilaterally, wheezes (Bilateral wheezes throughout.). Absent: respiratory distress, stridor, accessory muscle use, prolonged expiratory phase - Cardiovascular Cardiovascular exam: Present: regular rate, normal rhythm, normal heart sounds - Abdominal Exam Abdominal exam: Present: soft, Non-Tender, normal bowel sounds. Absent: tenderness, distention, guarding, rebound, rigidity - Extremities Exam Extremities exam: Present: normal inspection, full ROM. Absent: tenderness, pedal edema - Expanded Lower Extremity Exam Neurovascular/Tendon exam: Present: normal capillary refill. Absent: pulse deficit, motor deficit, sensory deficit, tendon deficit Gait: observed and normal - Back Exam Back exam: Present: normal inspection, full ROM. Absent: tenderness, CVA tenderness (R), CVA tenderness (L) - Neurological Exam Neurological exam: Present: alert, oriented X3 - Skin Skin exam: Present: warm, dry, intact, normal color Course Course Narrative: 57-year-old male presents to the emergency department complaining of chest pain. He was recently discharged from the hospital scheduled for outpatient heart catheter. We will take off the Nitropaste and 2 nitroglycerin trial. We will give him aspirin. We will also give him 2 nebs and Solu-Medrol as this could be COPD as well. We will get basic labs including CBC, BMP, troponin chest x-ray and EKG. This plan was likely disposition is admission and will contact cardiology for recommendations. Vital Signs Temperature 98.2 F 11/29/17 08:26 Pulse Rate 67 11/29/17 08:26 Respiratory Rate 12 11/29/17 08:26 Blood Pressure 143/120 11/29/17 08:26 O2 Sat by Pulse Oximetry 93 11/29/17 08:26 Temperature 98.2 F 11/29/17 08:26 Pulse Rate 62 11/29/17 10:59 Respiratory Rate 18 11/29/17 10:59 Blood Pressure 133/93 11/29/17 10:59 O2 Sat by Pulse Oximetry 94 11/29/17 10:59 Oxygen Delivery Oxygen Delivery Room Air Chest Pain - MDM Narrative Medical decision making narrative: 37-year-old male presented to the emergency department for chest pain. Patient was recently discharged. We did repeat chest x-ray and all labs she saw a negative troponin chest x-ray was normal. EKG did have new findings of trigeminy spoke with the emr analyst, Dr. Gregorio who says that they recommended admission and will consult with the patient after admitted. Patient was given a nitroglycerin trial which did help with his chest pain. We did take the nitro paste off. Did give him 2 nebs as well as a Medrol as he could have underlying COPD worsening his symptoms. Patient did feel better after the DuoNeb. Lungs are much clearer after this. I spoke with Dr. Alvarez agreed to admit the patient to their service. Patient is admitted to the hospital service in stable condition with cardiology consultation. We also gave patient aspirin. Chest X-Ray 11/29/17 08:28 IMPRESSION: Stable negative chest. D/ / Lory Shankar MD / Lory Shankar MD Interpreting Provider: Lory Shankar MD - Medical Records Medical records reviewed: Yes I reviewed the patient's medical records. - Lab Data Lab results reviewed: Yes I reviewed the patient's lab results. Result diagrams: 11/29/17 08:45 11/29/17 08:45 Lab Results 11/29/17 11/29/17 11/29/17 Range/Units 08:45 08:45 08:45 WBC 8.4 (4.3-11.1) K/mcL RBC 6.01 H (4.19-5.50) M/mcL Hgb 16.2 (12.9-16.9) g/dL Hct 49.4 (37.5-50.1) % MCV 82.2 L (83.0-100.0) fL MCH 27.0 L (28.0-33.3) pg MCHC 32.8 (31.6-35.5) g/dL RDW 13.3 (11.5-14.5) % Plt Count 371 (140-400) K/mcL MPV 10.3 (9.4-12.4) fL Immature Gran % 0.5 (0-4) % Seg Neutrophils % 61.8 % Lymphocytes % 23.2 % Monocytes % 9.9 % Eosinophils % 3.2 % Basophils % 1.4 % Neutrophils # 5.2 (1.6-8.9) K/mcL Lymphocytes # 1.9 (0.6-4.6) K/mcL Monocytes # 0.8 (0.0-1.3) K/mcL Eosinophils # 0.3 (0.0-0.6) K/mcL Basophils # 0.1 (0.0-0.2) K/mcL PT 11.0 (9.4-12.1) Seconds INR 1.0 APTT 28.4 (26.0-36.0) Seconds Sodium 137 (136-145) mEq/L Potassium 3.8 (3.5-5.1) mEq/L Chloride 104 (98-107) mEq/L Carbon Dioxide 25 (23-29) mEq/L BUN 20 (6-20) mg/dL Creatinine 1.14 (0.70-1.30) mg/dL Est GFR ( Amer) > 60 (> 60) Est GFR (Non-Af Amer) > 60 (> 60) BUN/Creatinine Ratio 18 (6-26) Glucose 117 H (70-105) mg/dL Calculated Osmolality 288 (280-300) Calcium 9.3 (8.6-10.3) mg/dL Troponin I (< 0.04) ng/mL 11/29/17 Range/Units 08:45 WBC (4.3-11.1) K/mcL RBC (4.19-5.50) M/mcL Hgb (12.9-16.9) g/dL Hct (37.5-50.1) % MCV (83.0-100.0) fL MCH (28.0-33.3) pg MCHC (31.6-35.5) g/dL RDW (11.5-14.5) % Plt Count (140-400) K/mcL MPV (9.4-12.4) fL Immature Gran % (0-4) % Seg Neutrophils % % Lymphocytes % % Monocytes % % Eosinophils % % Basophils % % Neutrophils # (1.6-8.9) K/mcL Lymphocytes # (0.6-4.6) K/mcL Monocytes # (0.0-1.3) K/mcL Eosinophils # (0.0-0.6) K/mcL Basophils # (0.0-0.2) K/mcL PT (9.4-12.1) Seconds INR APTT (26.0-36.0) Seconds Sodium (136-145) mEq/L Potassium (3.5-5.1) mEq/L Chloride (98-107) mEq/L Carbon Dioxide (23-29) mEq/L BUN (6-20) mg/dL Creatinine (0.70-1.30) mg/dL Est GFR ( Amer) (> 60) Est GFR (Non-Af Amer) (> 60) BUN/Creatinine Ratio (6-26) Glucose (70-105) mg/dL Calculated Osmolality (280-300) Calcium (8.6-10.3) mg/dL Troponin I < 0.03 (< 0.04) ng/mL - Radiology Data Radiology results reviewed: Yes I reviewed the patient's radiology results. - EKG Data EKG attestation: Yes I reviewed and interpreted this EKG. EKG results narrative: EKG done at 0 827 review myself and attending shows sinus rhythm at a rate of 69 , when necessary I will 200, QRS 104, QTC 410 with a normal axis. There is signs of trigeminy but no heart blocks or any ST elevation or ST changes or T- wave changes or any other signs of ischemia. No signs of hypertrophy or heart strain. No signs of WPW/Brugada syndrome. This EKG does have a new trigeminy when compared with old one done 11/25/17 otherwise no other changes. Heart Score - Score History: Moderately Suspicious EKG: Non Specific repolarisation Disturbance Age: 45-65 Risk Factors: Equal/Greater than 3 risk factor or history of atherosclerotic disease Troponin: Less than normal limit HEART Score Total: 5 Attestation Statement - Attestation Attestation: I, Wong Rudolph DO, examined this patient [id number] and my medical decision-making was reviewed with Dr. Harvinder Cuevas Resident Physician. I agree with the documented findings, disposition and treatment plan as described except to the extent set forth below. Please see my progress notes for details. 57-year-old male presents to emergency room with complaint of anginal like chest pain. Patient was just discharged from the hospital with angina on the schedule for an outpatient catheterization on Wednesday of this week. Morning woke up with the same symptoms he is having but they were more persistent and more exaggerated than normal. Patient applied his nitroglycerin glycerin patch and did not relieve the pain like it has been. No other concerns or issues noted at this time. Patient's symptoms are better controlled treatments. Physical exam does show some diminished breath sounds bilaterally consistent with a COPD exacerbation along with his chest pressure and tightness which has been stable in comparison. Patient does have an atrial arrhythmia on EKG but no acute signs of ST segment elevation or abnormality. Patient will be symptomatically treated here. Cardiology has evaluated the patient here in the emergency room and their consult a lot of the emergency room for evaluation. No other concerns or issues noted at this time. Patient will be admitted for definitive management and possible catheterization. Repeat labs of an unremarkable emergency room. See detailed documentation of physical exam, medical intervention, medical decision-making and disposition and the resident physician's note. No cocaine applied treatment course evaluation.
--- NOTE | 2017-11-29 10:33 | Cardiology Consult Note ---
Date of Encounter: 11/29/17 Time of Encounter: 10:31 Assessment and Plan (1) Abnormal stress test Current Visit: No Status: Acute Patient presented with chest pain. No significant ST/T wave abnormalities on ECG. Troponin negative. 11/26/17 Nuclear stress showed moderate reversible perfusion defect involving the inferior wall. TTE: EF 60-65%, normal wall motion. Risk factors for CAD including tobacco use, HTN, HLD, and obesity. Recommended LHC with possible PCI yesterday, however patient elected to come back later this week for LHC. As per HPI, has presented to ED for chest pain this AM. Recommend C to further evaluate. R/B/A discussed. Pt agrees to proceed. Continue ASA, Statin, BB. (2) Chest pain Current Visit: No Status: Acute As above. CP this AM, mild improvement with nitro, but still reports mild chest discomfort. Abnormal stress test 11/26/17 inferior ischemia. Recommend LHC. R/B/A discussed. LHC today. Qualifiers: Chest pain type: unspecified Qualified Code(s): R07.9 - Chest pain, unspecified (3) Hypertension Current Visit: Yes Status: Chronic Recommend continuing home antihypertensives and adjust as necessary. Qualifiers: Hypertension type: unspecified Qualified Code(s): I10 - Essential (primary ) hypertension (4) Tobacco abuse Current Visit: Yes Status: Chronic Smoking cessation counseling given. Discussion w patient/family: The assessment and plan as outlined above was discussed with the patient and/or family members who expressed understanding and agreement. All questions were answered. Thank you for involving us in the care of your patient. Please call with any questions. History of Present Illness Consult date: 11/29/17 Requesting physician: Harvinder Cuevas Consult reason: Chest pain, abnormal stress Chief complaint: Chest pain History of present illness: Mr. Smith is a 57 year old male with PMHx significant for HTN, HLD, and tobacco use who presented to the ED a few days ago with dizziness and lightheadedness. Associated symptoms include nausea with one episode of vomiting. Stress test was ordered and found to be abnormal--moderate inferior perfusion defect. He elected to have outpt [facility] later this week and was discharged home yesterday. When he woke up this AM he had left sided chest pain , described as aching and "panicked" and called EMS. He reports nitro given in ED helped somewhat, but he still has mild discomfort. Reports he is always short of breath and congested. Cardiology consulted for further recommendations. Recent CV testing: Nuclear stress 11/26/17: moderate reversible perfusion defect involving the inferior wall. TTE 11/2017: EF 60-65%, normal wall motion. Past Med Surg Social Fam HX - Past Medical History Medical history: hyperlipidemia, hypertension, kidney stones Psychiatric history: no psych history - Past Surgical History Surgical History: cholecystectomy, other - Social History Smoking Status: Current every day smoker Smokeless Tobacco Status: No Alcohol use: rarely Drug use: none - Family History Mother Living Status: Still Living Hx Family Cardiac Disorders: Yes Hx Family Respiratory Disorders: No Hx Family Cancer: No Hx Family GI Disorders: No Hx Family Endocrine Disorder: No Hx Family Neuromuscular Disorders: No Hx Family Neurologic Disorders: No Hx Family HEENT Disorders: No Hx Family Autoimmune Disorders: No Father Living Status: Hx Family Cardiac Disorders: Yes (CHF) Hx Family Respiratory Disorders: No Hx Family Cancer: No Hx Family GI Disorders: No Hx Family Endocrine Disorder: Yes (Dm) Hx Family Neuromuscular Disorders: No Hx Family Neurologic Disorders: No Hx Family HEENT Disorders: No Hx Family Autoimmune Disorders: No Medications and Allergies Amlodipine Besylate 10 mg PO DAILY 09/14/16 [History] Celecoxib [Celebrex] 200 mg PO DAILY 09/14/16 [History] Cetirizine HCl [Zyrtec] 10 mg PO DAILY 11/25/17 [History] Losartan/Hydrochlorothiazide [Hyzaar 100-25 Tablet] 1 each PO DAILY 11/25/17 [ History] Aspirin Enteric Coated [Aspirin EC] 81 mg PO DAILY tablet. 11/28/17 [Rx] Atenolol [Tenormin] 25 mg PO DAILY #30 tablet 11/28/17 [Rx] Atorvastatin [Lipitor] 40 mg PO HS #30 tablet 11/28/17 [Rx] Lidocaine Patch [Lidoderm 5% patch] 1 each TP DAILY #10 adh..patch 11/28/17 [Rx] Omeprazole [PriLOSEC] 20 mg PO DAILY 11/29/17 [History] Ranitidine HCl [Heartburn Relief] 150 mg PO DAILY 11/29/17 [History] 3 Allergy/AdvReac Type Severity Reaction Status Date / Time LORENZA Inhibitors Allergy Swelling Verified 11/25/17 16:27 of Lip/Tongue/Throat All Systems Review: A 10-system review of systems was performed and is negative for pertinent findings except as documented above in the HPI. - Cardiovascular Cardiovascular: as per HPI, chest pain at rest, dyspnea on exertion - Respiratory Respiratory: dyspnea Physical Examination Vital Signs, Last 4 Hours Temp Pulse Resp BP Pulse Ox 11/29/17 09:57 53 18 142/93 93 11/29/17 08:45 70 12 146/90 93 11/29/17 08:32 93 11/29/17 08:26 98.2 F 67 12 143/120 93 Vital Signs Temp Pulse Resp BP Pulse Ox 11/29/17 09:57 53 18 142/93 93 11/29/17 08:45 70 12 146/90 93 11/29/17 08:32 93 11/29/17 08:26 98.2 F 67 12 143/120 93 Intake and Output 11/28/17 11/29/17 11/29/17 23:59 07:59 15:59 Other: Weight 117.027 kg Patient Weight 11/29/17 23:59 Weight 117.027 kg General: Conversant, No Apparent Distress HEENT: Atraumatic, Normocephaly, Mucus Membranes Moist Neck: No JVD, Normal carotid pulses Cardiac: Reg Rate and Rhythm, Normal S1 and S2, No Murmur Lungs: Other (diminished) Neuro: Alert and responsive, No focal deficits noted Abdomen: Soft, Non-Tender Skin: No rashes noted on visualized skin Musculoskeletal: No Chest Wall Tenderness Extremities: No Clubbing, No Cyanosis, No Edema, Normal Pulses Results 11/29/17 08:45 11/29/17 08:45 Lab Results 11/29/17 11/29/17 11/29/17 08:45 08:45 08:45 WBC 8.4 RBC 6.01 H Hgb 16.2 Hct 49.4 MCV 82.2 L MCH 27.0 L MCHC 32.8 RDW 13.3 Plt Count 371 MPV 10.3 Immature Gran % 0.5 Seg Neutrophils % 61.8 Lymphocytes % 23.2 Monocytes % 9.9 Eosinophils % 3.2 Basophils % 1.4 Neutrophils # 5.2 Lymphocytes # 1.9 Monocytes # 0.8 Eosinophils # 0.3 Basophils # 0.1 PT 11.0 INR 1.0 APTT 28.4 Sodium 137 Potassium 3.8 Chloride 104 Carbon Dioxide 25 BUN 20 Creatinine 1.14 Est GFR ( Amer) > 60 Est GFR (Non-Af Amer) > 60 BUN/Creatinine Ratio 18 Glucose 117 H Calculated Osmolality 288 Calcium 9.3 Troponin I 11/29/17 08:45 WBC RBC Hgb Hct MCV MCH MCHC RDW Plt Count MPV Immature Gran % Seg Neutrophils % Lymphocytes % Monocytes % Eosinophils % Basophils % Neutrophils # Lymphocytes # Monocytes # Eosinophils # Basophils # PT INR APTT Sodium Potassium Chloride Carbon Dioxide BUN Creatinine Est GFR ( Amer) Est GFR (Non-Af Amer) BUN/Creatinine Ratio Glucose Calculated Osmolality Calcium Troponin I < 0.03 Short CBC 11/29/17 Range/Units 08:45 WBC 8.4 (4.3-11.1) K/mcL Hgb 16.2 (12.9-16.9) g/dL Hct 49.4 (37.5-50.1) % Plt Count 371 (140-400) K/mcL Neutrophils # 5.2 (1.6-8.9) K/mcL BMP 11/29/17 Range/Units 08:45 Sodium 137 (136-145) mEq/L Potassium 3.8 (3.5-5.1) mEq/L Chloride 104 (98-107) mEq/L Carbon Dioxide 25 (23-29) mEq/L BUN 20 (6-20) mg/dL Creatinine 1.14 (0.70-1.30) mg/dL Glucose 117 H (70-105) mg/dL Calcium 9.3 (8.6-10.3) mg/dL Cardiac Enzymes 11/29/17 Range/Units 08:45 Troponin I < 0.03 (< 0.04) ng/mL Impressions Chest X-Ray 11/29/17 08:28 IMPRESSION: Stable negative chest. D/ / Lory Shankar MD / Lory Shankar MD Interpreting Provider: Lory Shankar MD Active Medications Nitroglycerin (Nitroglycerin) 0.4 mg SL Q5MIN PRN PRN Reason: Chest Pain Stop: 05/31/18 09:52 Last Admin: 11/29/17 10:00 Dose: 0.4 mg - Imaging and Cardiology Stress Test: report reviewed Echo: report reviewed - EKG Interpretation EKG results cardiology: personally reviewed Consult Discharge Plan - Plan Referrals: Deirdre Radford, [facility]RBAN [Primary Care Provider] -
[2017-11-29] MEDS ORDERED: Naloxone 0.4 MG/ML INJ IVP PRN (11:05)
--- NOTE | 2017-11-29 11:09 | Internal Med History&Physical ---
Date of Encounter: 11/29/17 Time of Encounter: 11:08 Assessment and Plan (1) Chest pain Current visit: Yes Status: Acute Patient presented with atypical chest pain symptoms 11/25. . No ST/T wave abnormalities on ECG. Troponin negative. Nuclear stress and ECHO 11/26/17: moderate reversible perfusion defect involving the inferior wall. TTE: EF 60-65%, normal wall motion respectively Cardiology recommended LHC with possible PCI, however patient declined and was discharged 11/28 with medical therapy He represented to the ER today with complains of chest pain CXR, EKG, trop negative Cardiology has been consulted and patient is for possible LHC today Continue ASA, Statin. BB. ARB. Qualifiers: Chest pain type: unspecified Qualified Code(s): R07.9 - Chest pain, unspecified (2) Hypertension Current visit: Yes Status: Chronic Controlled, continue home meds Qualifiers: Hypertension type: unspecified Qualified Code(s): I10 - Essential (primary ) hypertension (3) Tobacco abuse Current visit: Yes Status: Chronic cessation counselling (4) GERD (gastroesophageal reflux disease) Current visit: Yes Status: Chronic continue PPI Qualifiers: Esophagitis presence: without esophagitis Qualified Code(s): K21.9 - Gastro -esophageal reflux disease without esophagitis (5) Obesity (BMI 30-39.9) Current visit: Yes Status: Chronic lifestyle modification Internal Medicine - H&P: HPI Chief complaint: chest pain, i want the cath Admitted From: Home Plans for Post Hospital Care: Home History of present illness: Mr. Smith is a 57 year old male with medical history of hypertension, GERD, obesity tobacco abuse. Was recently discharged yesterday after being worked up for chest pain and abnormal stress test. The patient was offered the left heart catheterization by the cardiology team, however he refused and he was discharged home on medical therapy. He reports he woke up this morning with chest pain on the left side was dull and nonradiating. No known relieving or aggravating factors. He reports associated nausea. He was not sure if the chest pain was due to anxiety or he was having a recurrence of the chest pain that he presented earlier. He decided to come to the ER for workup. He has been evaluated by cardiology, and is going to catheterization today. Other review of systems noncontributory. Past Med Surg Social Fam HX - Past Medical History Medical history: hyperlipidemia, hypertension, kidney stones Psychiatric history: no psych history - Past Surgical History Surgical History: cholecystectomy, other - Social History Smoking Status: Current every day smoker Smokeless Tobacco Status: No Alcohol use: rarely Drug use: none - Family History Mother Living Status: Still Living Hx Family Cardiac Disorders: Yes Hx Family Respiratory Disorders: No Hx Family Cancer: No Hx Family GI Disorders: No Hx Family Endocrine Disorder: No Hx Family Neuromuscular Disorders: No Hx Family Neurologic Disorders: No Hx Family HEENT Disorders: No Hx Family Autoimmune Disorders: No Father Living Status: Hx Family Cardiac Disorders: Yes (CHF) Hx Family Respiratory Disorders: No Hx Family Cancer: No Hx Family GI Disorders: No Hx Family Endocrine Disorder: Yes (Dm) Hx Family Neuromuscular Disorders: No Hx Family Neurologic Disorders: No Hx Family HEENT Disorders: No Hx Family Autoimmune Disorders: No Internal Medicine - H&P: Meds Amlodipine Besylate 10 mg PO DAILY 09/14/16 [History] Celecoxib [Celebrex] 200 mg PO DAILY 09/14/16 [History] Cetirizine HCl [Zyrtec] 10 mg PO DAILY 11/25/17 [History] Losartan/Hydrochlorothiazide [Hyzaar 100-25 Tablet] 1 each PO DAILY 11/25/17 [ History] Aspirin Enteric Coated [Aspirin EC] 81 mg PO DAILY tablet. 11/28/17 [Rx] Atenolol [Tenormin] 25 mg PO DAILY #30 tablet 11/28/17 [Rx] Atorvastatin [Lipitor] 40 mg PO HS #30 tablet 11/28/17 [Rx] Lidocaine Patch [Lidoderm 5% patch] 1 each TP DAILY #10 adh..patch 11/28/17 [Rx] Omeprazole [PriLOSEC] 20 mg PO DAILY 11/29/17 [History] Ranitidine HCl [Heartburn Relief] 150 mg PO DAILY 11/29/17 [History] 3 Allergy/AdvReac Type Severity Reaction Status Date / Time LORENZA Inhibitors Allergy Swelling Verified 11/25/17 16:27 of Lip/Tongue/Throat All Systems PM: A 10-system review of systems was performed and is negative for pertinent findings except as documented above in the HPI. - Constitutional Constitutional: no chills, no fever(s), no night sweats - EENT Eyes: no change in vision, no discharge, no pain, no photophobia Ears: no ear discharge, no ear pain, no tinnitus Nose, mouth and throat: no dysphagia, no nasal discharge, no neck pain, no sore throat - Cardiovascular Cardiovascular ROS IM: as per HPI, chest pain - Respiratory Respiratory: no cough, no dyspnea, no wheezing, no excessive phlegm production - Gastrointestinal Gastrointestinal: no abdominal pain, no diarrhea, no hematemesis, no hematochezia, no melena, no nausea, no vomiting - Musculoskeletal Musculoskeletal ROS IM: no numbness, no tingling - Integumentary Integumentary IM: no rash, no unusual bruising - Neurological Neurological ROS: no confusion, no convulsions, no focal weakness, no numbness, no tingling, no tremor(s) - Hematologic/Lymphatic Hematologic/Lymphatic: no easy bruising - Constitutional Vitals: Temp Pulse Resp BP Pulse Ox 98.2 F 62 18 133/93 94 11/29/17 08:26 11/29/17 10:59 11/29/17 10:59 11/29/17 10:59 11/29/17 10:59 General appearance: Present: A&O X 3, no acute distress, obese - Head Head exam: Present: atraumatic, normocephalic - Eye Eye exam: Present: PERRL, conjuntiva pink, sclera anicteric Pupils: Present: PERRL - Neck Neck exam general surgery: Present: supple, trachea midline. Absent: lymphadenopathy - Respiratory Respiratory exam: Present: CTAB. Absent: accessory muscle use, rales, rhonchi, wheezes - Cardiovascular Cardiovascular exam: Present: RRR, +S1, +S2. Absent: diastolic murmur, gallop, rubs, systolic murmur - GI/Abdominal GI/Abdominal exam: Present: normal bowel sounds, soft, no peritoneal signs. Absent: distended, tenderness - Extremities Exam Extremities exam: Present: warm, radial pulses palpable and symmetrical. Absent : calf tenderness, cyanotic, pedal edema - Neurological Exam Neurological exam: Present: alert, CN II-XII intact, oriented X3, no focal deficits. Absent: pronater drift, facial droop, speech deficit - Skin Skin exam: Present: dry, intact Internal Med - H&P Results - Labs CBC & Chem 7: 11/29/17 08:45 11/29/17 08:45 Labs: Short CBC 11/29/17 Range/Units 08:45 WBC 8.4 (4.3-11.1) K/mcL Hgb 16.2 (12.9-16.9) g/dL Hct 49.4 (37.5-50.1) % Plt Count 371 (140-400) K/mcL Neutrophils # 5.2 (1.6-8.9) K/mcL BMP 11/29/17 08:45 Sodium 137 Potassium 3.8 Chloride 104 Carbon Dioxide 25 BUN 20 Creatinine 1.14 Glucose 117 H Calcium 9.3 Cardiac Enzymes 11/29/17 Range/Units 08:45 Troponin I < 0.03 (< 0.04) ng/mL - Impressions ITS Impressions Chest X-Ray 11/29/17 08:28 IMPRESSION: Stable negative chest. D/ / Lory Shankar MD / Lory Shankar MD Interpreting Provider: Lory Shankar MD
--- NOTE | 2017-11-29 12:55 | Pre-Sedation Evaluation ---
Pre-sedation evaluation - Pre-sedation checklist Date of procedure: 11/29/17 Procedure: LHC Recent Vitals: Last Vital Signs Temp 98.2 F 11/29/17 08:26 Pulse 68 11/29/17 12:38 Resp 18 11/29/17 12:38 BP 149/98 11/29/17 12:38 Pulse Ox 95 11/29/17 12:38 ASA Classification *see protocol: CLASS II-Mild systemic disease Plan of Care: Pt appropriate candidate for procedure/moderate/conscious sedation
[2017-11-29] MEDS ORDERED: Nitroglycerin 1,000 MCG/10 ML VIAL IV ONE (14:53)
[2017-11-29] MEDS ORDERED: 0.9 % Sodium Chloride 1,000 ML ONE (14:53)
[2017-11-29] MEDS ORDERED: *HR* Heparin 10,000 UNIT/10 ML VIAL ONE (14:53)
[2017-11-29] MEDS ORDERED: Heparin 1,000 UNITS/500 mL 500 ML ONE (14:53)
[2017-11-29] MEDS ORDERED: Acetaminophen 325 MG TABLET PO PRN (20:37)
[2017-11-30 08:34] LABS: Basophils # 0.1 K/mcL (0.0-0.2); Basophils % 0.5 %; Eosinophils # 0.1 K/mcL (0.0-0.6); Eosinophils % 0.8 %; Hematocrit 48.8 % (37.5-50.1); Hemoglobin 16.2 g/dL (12.9-16.9); Immature Granulocytes % 0.6 % (0-4); Lymphocytes % 17.3 %; Mean Corpuscular HGB Conc 33.2 g/dL (31.6-35.5); Mean Corpuscular Hemoglobin 27.5 pg (28.0-33.3); Mean Corpuscular Volume 82.9 fL (83.0-100.0); Mean Platelet Volume 10.5 fL (9.4-12.4); Monocytes # 1.7 K/mcL (0.0-1.3); Monocytes % 9.8 %; Platelet Count 397 K/mcL (140-400); Red Blood Count 5.89 M/mcL (4.19-5.50); Red Cell Distribution Width 13.4 % (11.5-14.5)
[2017-11-30 08:36] LABS: Neutrophils # 12.1 K/mcL (1.6-8.9)
[2017-11-30] MEDS ORDERED: Aspirin Enteric Coated 81 MG Tablet PO SCH (09:00)
[2017-11-30] MEDS ORDERED: amLODIPine 5 MG TABLET PO SCH (09:00)
[2017-11-30] MEDS ORDERED: Losartan/HCTZ 50-12.5 TABLET PO SCH (09:00)
[2017-11-30 09:16] LABS: Calcium 9.4 mg/dL (8.6-10.3); Carbon Dioxide 24 mEq/L (23-29); Chloride 105 mEq/L (98-107); Potassium 3.8 mEq/L (3.5-5.1); Sodium 136 mEq/L (136-145)
[2017-11-30 09:22] LABS: BUN/Creatinine Ratio 23 (6-26); Blood Urea Nitrogen 24 mg/dL (6-20); Glucose 106 mg/dL (70-105); Osmolality,Calculated 286 (280-300); eGFR For African Americans > 60 (> 60); eGFR For Non-African Americans > 60 (> 60)
--- NOTE | 2017-11-30 14:43 | Pre-Sedation Evaluation ---
Pre-sedation evaluation - Pre-sedation checklist Date of procedure: 11/30/17 Procedure: [facility] Recent Vitals: Last Vital Signs Temp 98.0 F 11/30/17 10:31 Pulse 60 11/30/17 10:31 Resp 16 11/30/17 10:31 BP 147/86 11/30/17 10:31 Pulse Ox 95 11/30/17 10:31 H&P (including ROS) documented in medical record: Yes Previous reaction to sedatives/anesthetics: No Dietary Status: No solid food in preceding 4 hrs and no liquid in preceding 2 hrs Airway Assessment: Patient can open mouth completely, TMJ function normal, Micrognathia (under-bite, receding chin) absent, Neck with adequate range of motion Dentition: No loose teeth or bridges Possible difficult airway: No ASA Classification *see protocol: CLASS II-Mild systemic disease Plan of Care: Pt appropriate candidate for procedure/moderate/conscious sedation , Risks/benefits of procedure/sedation discussed w/ patient/family
[2017-11-30] MEDS ORDERED: 0.9 % Sodium Chloride 1,000 ML ONE ×2 (14:49→14:56)
[2017-11-30] MEDS ORDERED: *HR* Heparin 10,000 UNIT/10 ML VIAL ONE (14:50)
[2017-11-30] MEDS ORDERED: Heparin 1,000 UNITS/500 mL 500 ML ONE (14:50)
[2017-11-30] MEDS ORDERED: *HR* Midazolam HCl 2 MG/2 ML VIAL ONE (15:08)
[2017-11-30] MEDS ORDERED: *HR* FentaNYL (PF) 100 MCG/2 ML VIAL ONE (15:09)
--- NOTE | 2017-11-30 15:53 | Invasive Diagnostic Lab Proc ---
Name: Clarke Smith Date of Study: 11/30/2017 Date: 1960 Ht: 68.9in Medical Record#: [id number] Age: 57 Wt: 257.94lb Gender: Male BSA: 2.3 Order #: [id number] BMI: 38.2 Physicians Procedure Physician: Kym Ferrera MD, [facility] Referring MD: Referring MD: Staff Name Position Time In Viky Clark RT (R) Scrub 02:55 PM Gómez Marc RT (R) Monitor 02:55 PM Luke Reid RN Printing Assistant 02:55 PM Chandni Sloan RN Scrub 03:07 PM Indications Indication Abnormal Test - Stress Procedures Performed Procedure L HRT ARTERY/VENTRICLE ANGIO Pre-Procedure Checklist Informed consent is complete signed and on chart. H&P is on chart. ID band is on and ID verified with patient. Patient NPO for procedure The procedure was described for the patient and questions were answered. Blood Pressure: 169/99 ECG is on chart. Rhythm: Sinus Bradycardia Plan of Care Patient will tolerate the procedure without complications. Adequate level of comfort will be maintained. Hemodynamics will remain stable Patient will recover from procedure without complications. Respiratory function will be maintained. Cardiac rhythm will remain stable. Patient temperature will be maintained. Patient and/or family have verbalized understanding of the procedure. Patient Education Chief Complaint/Reason for Test: Cardiac Cath Developmental Category: Adult (18-64 years) Developmentally Appropriate for Age: Yes Learning Barriers: None Education Needs: Procedure Education Method: Verbal Information Taught: Cardiac Cath Educational Evaluation: Able to repeat information Intravenous Access Time IV Size Location DC'd Fluid/Drip Rate Units RN 02:56 PM 20g 1 1/" Patent On Arrival Lt Antecubital 0.9NaCl 25 ml/hr Luke Reid RN Allergies LORENZA Inhibitors Vital Signs Time BP (mmHg) HR (bpm) O2 Sat. RR (bpm) LOC 02:56 PM 155 / 92 70 96 % 17 5 = Fully awake and oriented or at pre-proc level 02:55 PM / % 5 = Fully awake and oriented or at pre-proc level 03:11 PM / % 4 = Oriented but drowsy 03:08 PM 169 / 99 54 96 % 21 03:13 PM 159 / 95 62 95 % 20 03:18 PM 152 / 97 51 94 % 24 03:23 PM 149 / 78 33 93 % 18 03:28 PM 141 / 90 49 92 % 18 Procedural Medications Time Medication Dose Units Method Given By 03:11 PM Versed 2 mg Intravenous Luke Reid RN 03:11 PM Fentanyl 50 mcg Intravenous Luke Reid RN 03:16 PM Benadryl 25 mg Intravenous Luke Reid RN 03:16 PM Lidocaine 2% 20 ml Subcutaneous Kym Ferrera MD, [facility] ASA Classification: CLASS II- Mild systemic disease (i.e. well-controlled diabetes, hypertension, asthma, cigarette smoking) Wagner Score Preprocedure Postprocedure Activity 2- Moves 4 extremities sustained head lift Activity 2- Moves 4 extremities sustained head lift Circulation 2- SBP +/= 20 points of pre-anesthetic level Circulation 2- SBP +/= 20 points of pre-anesthetic level Consciousness 2- Awake and alert oriented x 3 Consciousness 2- Awake and alert oriented x 3 O2 Saturation 2- Able to maintain O2 satruation of 92% on room air O2 Saturation 2- Able to maintain O2 satruation of 92% on room air Respiratory 2- Able to deep breathe and cough well Respiratory 2- Able to deep breathe and cough well Total Score 10 Total Score 10 Contrast Agent: Isovue Diagnostic Contrast: 65 ml Total Contrast: 65 ml Fluoro Dose: 357 mGy Procedure Log Time Note Enter By 02:55 PM Pt arrived to bolt labeler 2 at 14:55 02:55 PM Viky Clark RT (R) Position: Scrub Time in: 14:55 02:55 PM Marc Magaña RT (R) Position: Monitor Time in: 14:55 02:55 PM Luke Reid RN Position: Printing Assistant Time in: 14:55 02:55 PM Patient charges- Angio tray pack, Navilyst 3mm J, Pulse Oximetry and ACIST tubing and transducer 02:55 PM Case Delayed No 02:55 PM Time: 14:55 Patient comfortable and pain free: Yes 02:55 PM Time: 14:55LOC: 5 = Fully awake and oriented or at pre-proc level [email or web address] 02:57 PM CathStat 03:01 PM Physician arrived 15:01 03:01 PM Meet and greet completed 03:01 PM Sign in performed according to hospital policy. 03:01 PM Procedure start 15:01 03:02 PM ASA Class CLASS II- Mild systemic disease (i.e. well-controlled diabetes, hypertension, asthma, cigarette smoking) 03:04 PM Hair removed from procedure site in procedure lab using clippers. Bilateral groin prepped with Chloraprep by Viky Clark (R), safety strap applied then patient was draped. Skin intact. 03:07 PM Vitals capture started with the following parameters, Patient=Adult, Interval=5 min, Initial Alnirhcw=573 mmHg, Deflation Rate=5 mmHg, Cuff placed on Right Arm 03:07 PM Recorded ECG: HR=55 Condition=Condition 1 03:07 PM Chandni Sloan RN Position: Scrub Time in: 15:07 03:08 PM HR=54 bpm, HOCW=410/99 mmhg, SpO2=96.0 %, Resp=21 B/min 03:10 PM Time: 14:55 Patient comfortable and pain free: Yes 03:11 PM Time: 14:55LOC: 5 = Fully awake and oriented or at pre-proc level 03:11 PM Time: 15:11 Versed 2 mg Intravenous Given by Luke Reid RN 03:11 PM Time: 15:11 Fentanyl 50 mcg Intravenous Given by Luke Reid RN 03:13 PM Pressure channel 1 zero failed. 03:13 PM Pressure channel 1 zeroed. 03:13 PM HR=62 bpm, NXDB=038/95 mmhg, SpO2=95.0 %, Resp=20 B/min 03:14 PM Time out performed according to hospital policy 03:16 PM Time: 15:16 Benadryl 25 mg Intravenous Given by Luke Reid RN 03:17 PM Time: 15:16 20 ml Lidocaine 2% to right groin Subcutaneous Given by Kym Ferrera MD, [facility] 03:17 PM Access obtained by percutaneous puncture. 5Fr 10cm Terumo Franklin sheath placed in right Femoral artery. [id number] 03:17 PM 0.035 145cm Navilyst 3mmJ wire [id number] 03:17 PM 5Fr FL 4 catheter inserted over the wire [facility] 03:18 PM HR=51 bpm, FXVF=818/97 mmhg, SpO2=94.0 %, Resp=24 B/min 03:18 PM LCA angiography performed in multiple views. 03:18 PM Recorded Pressure: Ao, HR=50, Condition=Condition 1 (Aorta) Ao 155/101/125 03:19 PM Catheter removed 03:20 PM 5Fr FR 4 catheter inserted over the wire [facility] 03:20 PM RCA angiography performed in multiple views. 03:21 PM Recorded Pressure: Ao, HR=50, Condition=Condition 1 (Aorta) Ao 148/96/120 03:21 PM Catheter removed 03:22 PM 5Fr Pigtail catheter inserted over the wire [facility] 03:22 PM Catheter selectively placed in left ventricle 03:23 PM Pressure channel 1 zero failed. 03:23 PM HR=33 bpm, ECQG=892/78 mmhg, SpO2=93.0 %, Resp=18 B/min 03:23 PM Pressure channel 1 zeroed. 03:23 PM Recorded Pressure: LV, HR=44, Condition=Condition 1 (Left Ventricle) LV 136/12/15 03:23 PM Bolus angiogram of left Ventricle complete: 8 ml/sec for a total of 24 mls 03:23 PM Recorded Pressure: LV, Ao, HR=59, Condition=Condition 1 (Left Ventricle) LV 125/6/24, (Aorta) Ao 134/92/112 03:23 PM Catheter removed 03:24 PM Physician reviewing films 03:24 PM Bolus angiogram of right Femoral complete: 4 ml/sec for a total of 7 mls 03:26 PM Time: 15:10 Patient comfortable and pain free: Yes 03:26 PM Time: 15:11LOC: 4 = Oriented but drowsy 03:27 PM Arterial sheath pulled, Mynx closure device used and was Successful [id number] S/N. 03:28 PM HR=49 bpm, FVAL=982/90 mmhg, SpO2=92.0 %, Resp=18 B/min 03:28 PM Procedure completed at 15:28 [facility] 03:28 PM Sign out completed: Radiation Dose 357.42 mGy Fluoro Time: 1.1 Isovue 370 - 200ml contrast 65 ml given by Kym Ferrera MD, FACC. Complications: NoneCardiac Rehab Consult needed: NoConfirmed administered medications: Yes [email or web address] 03:28 PM Isovue 370 - 200ml,1 Bottle(s) used. [email or web address] 03:28 PM Estimated Blood Loss: less than 20cc [email or web address] 03:29 PM Post ECG Sinus Bradycardia [email or web address] 03:29 PM Post Blood Pressure 141/90 [email or web address] 03:29 PM Information taught Cardiac Cath and Mynx [email or web address] 03:30 PM Education needs Procedure, Plan of Care, and Disease Process [email or web address] 03:30 PM Learning barriers :Sedated [email or web address] 03:30 PM Education Methods Verbal [email or web address] 03:30 PM Education evaluation Needs further instruction [email or web address] 03:30 PM Site status No bleeding/hematoma - Rt Groin as reported by Chandni Sloan RN at 15:30 [email or web address] 03:30 PM Opsite applied [email or web address] 03:30 PM Family placed in consult room. [email or web address] 03:30 PM Delay to floor No [email or web address] 03:30 PM Complications: None [email or web address] 03:30 PM Fluoro Time: 1.1 [email or web address] 03:31 PM Vitals capture stopped. 03:32 PM Isovue 370 - 200ml contrast 65 ml given by Kym Ferrera MD, FACC. [email or web address] 03:32 PM Radiation Dose 357.42 mGy [email or web address] 03:32 PM Coronary Dominance: right [email or web address] 03:32 PM Lesion found in Proximal RCA. Pre Stenosis: 100 Pre TOMÁS Flow: [email or web address] 03:33 PM Right Coronary, Right Posterior Descending Arteries with Right Posterolateral and Acute Marginal branches with 100 % stenosis. If graft is supplying this area, 0 % stenosis [email or web address] 03:33 PM Lesion found in LMCA. Pre Stenosis: 20 Pre TOMÁS Flow: [email or web address] 03:33 PM Left Main Coronary Artery with 20% stenosis [email or web address] 03:33 PM Lesion found in Proximal LAD. Pre Stenosis: 30 Pre TOMÁS Flow: [email or web address] 03:33 PM Proximal Left Anterior Descending Coronary Artery with 30% stenosis. If graft is supplying this territory, 0 % stenosis. [email or web address] 03:33 PM Lesion found in Mid LAD. Pre Stenosis: 40 Pre TOMÁS Flow: [email or web address] 03:33 PM Mid/Distal Left Anterior Descending Coronary Artery and diagonal branches with 40% stenosis. If graft is supplying this area, 0 % stenosis [email or web address] 03:33 PM Lesion found in Distal LAD. Pre Stenosis: 40 Pre TOMÁS Flow: [email or web address] 03:34 PM Lesion found in Proximal Circumflex. Pre Stenosis: 30 Pre TOMÁS Flow: [email or web address] 03:34 PM Lesion found in 1st Marginal. Pre Stenosis: 40 Pre TOMÁS Flow: [email or web address] 03:34 PM Circumflex, Obtuse Marginal, Left Posterior Descending, and Left Posterolateral Coronary Arteries with 40 % stenosis. If graft is supplying this area, 0 % stenosis [email or web address] 03:40 PM Patient out of room: 15:40 [email or web address] 03:41 PM 15:41 Post Pulses Bilateral DP & PT 2+ [email or web address] 03:45 PM Report given to sola BENT[place] Pt taken to 2A Room #62. 15:44 [email or web address] Complications Complication None None Hemodynamics Pressures Site Systolic/A Wave Diastolic/V Wave Mean AO 155 101 125 AO 148 96 120 LV 136 12 15 LV 125 6 24 AO 134 92 112 Post Procedure Information Blood Pressure: 141/90 mmHg Rhythm: Sinus Bradycardia Post procedural instructions were given Closure Device Time Device Success/Fail 11/30/2017 3:27:00 PM MynxGrip Successful Site Checks Time Location Status Staff Sheath In? Note 03:30 PM Rt Groin No bleeding/hematoma Chandni Sloan RN Pulses Time Site Pre-Procedure Post-Procedure Note 11/30/2017 2:56:00 PM Bilateral DP & PT 2+ 11/30/2017 2:56:00 PM Bilateral radial 2+ 3:41:00 PM Bilateral DP & PT 2+ Updated by Marc Magaña RT (R) on 11/30/2017 3:45:08 PM RT Trini electronically signed on 11/30/2017 3:45:29 PM with status of Final
[2017-11-30] MEDS ORDERED: Isosorbide MONOnitrate (24 HR) 30 MG TAB.ER.24H PO SCH (16:00)
--- NOTE | 2017-11-30 18:57 | Internal Med Progress Note ---
Date of Encounter: 11/30/17 Time of Encounter: 11:00 - Assessment and plan (1) Chest pain Current Visit: Yes Status: Acute Assessment and plan: Patient had an abnormal stress test a few days ago and elected to have outpatient left heart catheter as outpatient later on this week. He was awakened by chest pain and presented to the ER. He underwent a cardiac catheterization today which revealed single-vessel coronary artery disease CT O of proximal RCA-cardiology recommends aggressive risk factor modification-1 continue with aspirin and statin beta miranda and Imdur Encouraged patient to stop smoking Qualifiers: Chest pain type: unspecified Qualified Code(s): R07.9 - Chest pain, unspecified (2) Hypertension Current Visit: Yes Status: Chronic Assessment and plan: Presently controlled we will continue with Norvasc and losartan Qualifiers: Hypertension type: essential hypertension Qualified Code(s): I10 - Essential (primary) hypertension (3) Tobacco abuse Current Visit: Yes Status: Chronic Assessment and plan: Encouraged patient to stop smoking nicotine patch as needed (4) DVT prophylaxis Current Visit: No Status: Acute - Subjective Interval history: Patient presented to the ER a few days ago with dizziness and lightheadedness associated symptoms included nausea vomiting. Stress test was ordered and was found to be abnormal. He elected to have outpatient left heart Later this week and was discharged home yesterday. He again began to have left-sided chest pain describing as aching. Cardiology was consult to patient is nothing by mouth and to undergo a cardiac catheterization later today presently he denies any chest pain or shortness of breath. He is hemodynamically stable at this time - Constitutional Vitals: Temp Pulse Resp BP Pulse Ox 97.2 F L 49 17 146/82 98 11/30/17 16:35 11/30/17 16:35 11/30/17 16:35 11/30/17 16:35 11/30/17 16:35 General appearance: Present: A&O X 3, no acute distress, obese - Head Head exam: Present: atraumatic, normocephalic - Eye Eye exam: Present: PERRL, conjuntiva pink, sclera anicteric Pupils: Present: PERRL - Neck Neck exam general surgery: Present: supple, trachea midline. Absent: lymphadenopathy - Respiratory Respiratory exam: Present: CTAB. Absent: accessory muscle use, rales, rhonchi, wheezes - Cardiovascular Cardiovascular exam: Present: RRR, +S1, +S2. Absent: diastolic murmur, gallop, rubs, systolic murmur - GI/Abdominal GI/Abdominal exam: Present: normal bowel sounds, soft, no peritoneal signs. Absent: distended, tenderness - Extremities Exam Extremities exam: Present: warm, radial pulses palpable and symmetrical. Absent : calf tenderness, cyanotic, pedal edema - Neurological Exam Neurological exam: Present: CN II-XII intact, oriented X3, no focal deficits. Absent: pronater drift, facial droop, speech deficit - Skin Skin exam: Present: dry, intact Internal Medicine: Result - Labs CBC & Chem 7: 11/30/17 08:23 11/30/17 08:23 Labs: Short CBC 11/30/17 Range/Units 08:23 WBC 17.1 H D (4.3-11.1) K/mcL Hgb 16.2 (12.9-16.9) g/dL Hct 48.8 (37.5-50.1) % Plt Count 397 (140-400) K/mcL Neutrophils # 12.1 H (1.6-8.9) K/mcL BMP 11/30/17 08:23 Sodium 136 Potassium 3.8 Chloride 105 Carbon Dioxide 24 BUN 24 H Creatinine 1.06 Glucose 106 H Calcium 9.4 - ABG Interpretation ABG results: PT/INR, D-dimer PT 11.0 Seconds (9.4-12.1) 11/29/17 08:45 Consult Discharge Plan - Plan Referrals: Deirdre Radford, [employer] [Primary Care Provider] -
--- NOTE | 2017-11-30 19:06 | Discharge Summary ---
Date of Encounter: 12/01/17 Time of Encounter: 08:00 - Discharge Diagnosis (1) Chest pain Priority: Primary Status: Acute Comments: 1 patient had abnormal stress test opted to have left heart catheter as outpatient however he continued to experience chest pain on 11/30/2017 underwent left heart catheter was noted to have single-vessel coronary disease [employer] of proximal RCA cardiology recommends aggressive risk factor modification. We will continue to aspirin and statin beta miranda and Imdur nitrates for chest pain Encourage patient to stop smoking Low-sodium diet Qualifiers: Chest pain type: unspecified Qualified Code(s): R07.9 - Chest pain, unspecified (2) Hypertension Priority: Secondary Status: Chronic Comments: Presently controlled we will continue with Norvasc and Hyzaar Qualifiers: Hypertension type: essential hypertension Qualified Code(s): I10 - Essential (primary) hypertension (3) Tobacco abuse Priority: Secondary Status: Chronic Comments: Encourage patient to stop smoking and offered nicotine patch - Discharge Medications Home Medications: Amlodipine Besylate 10 mg PO DAILY 09/14/16 [History] Celecoxib [Celebrex] 200 mg PO DAILY 09/14/16 [History] Cetirizine HCl [Zyrtec] 10 mg PO DAILY 11/25/17 [History] Losartan/Hydrochlorothiazide [Hyzaar 100-25 Tablet] 1 each PO DAILY 11/25/17 [ History] Aspirin Enteric Coated [Aspirin EC] 81 mg PO DAILY tablet.dr 11/28/17 [Rx] Atenolol [Tenormin] 25 mg PO DAILY #30 tablet 11/28/17 [Rx] Atorvastatin [Lipitor] 40 mg PO HS #30 tablet 11/28/17 [Rx] Lidocaine Patch [Lidoderm 5% patch] 1 each TP DAILY #10 adh..patch 11/28/17 [Rx] Omeprazole [PriLOSEC] 20 mg PO DAILY 11/29/17 [History] Ranitidine HCl [Heartburn Relief] 150 mg PO DAILY 11/29/17 [History] Allergies/Adverse Reactions: 3 Allergy/AdvReac Type Severity Reaction Status Date / Time LORENZA Inhibitors Allergy Swelling Verified 11/25/17 16:27 of Lip/Tongue/Throat Date of admission: 11/29/17 13:21 Primary care physician: Deirdre Radford CNP Consults: Cardiology Discharging clinician: Sybil Wright Anticipated date of discharge: 12/01/17 - Patient Status Disposition: Home, Self-Care Condition: Fair Functional capacity at discharge: independent ambulation - Discharge Instructions Instructions: Chest Pain (DC), Chronic Hypertension (DC) Follow Up With: Deirdre Radford, COOK APPRENTICE [Primary Care Provider] - - Diet and Activity Activity: increase activity as tolerated Diet: low fat, low cholesterol, low salt diet Hospital course: Mr. Smith is a 57 year old male patient presented to the hospital a few days ago with dizziness and lightheadedness associated symptoms of nausea and vomiting. He underwent a stress test and was found to be abnormal moderate inferior perfusion defect. He elected to have an outpatient left heart catheter later on this week however he continued to experience chest pain and presented back to the emergency department. He underwent left heart catheter which did show single-vessel coronary artery disease CT of the proximal RCA cardiology recommends aggressive risk factor modification. Patient has been chest pain-free with no EKG changes overnight he has been advised to stop smoking and offered nicotine patch. I reviewed medications as well as follow- up appointments with cardiology and PCP. Patient verbalized understanding he is hemodynamically stable and ready for discharge - Time Spent with Patient Total time spent providing and/or coordinating discharge services: - Constitutional Vitals: Temp Pulse Resp BP Pulse Ox 97.2 F L 49 17 146/82 98 11/30/17 16:35 11/30/17 16:35 11/30/17 16:35 11/30/17 16:35 11/30/17 16:35 General appearance: Present: A&O X 3, no acute distress, obese - Head Head exam: Present: atraumatic, normocephalic - Eye Eye exam: Present: PERRL, conjuntiva pink, sclera anicteric Pupils: Present: PERRL - Neck Neck exam general surgery: Present: supple, trachea midline. Absent: lymphadenopathy - Respiratory Respiratory exam: Present: CTAB. Absent: accessory muscle use, rales, rhonchi, wheezes - Cardiovascular Cardiovascular exam: Present: RRR, +S1, +S2. Absent: diastolic murmur, gallop, rubs, systolic murmur - GI/Abdominal GI/Abdominal exam: Present: normal bowel sounds, soft, no peritoneal signs. Absent: distended, tenderness - Extremities Exam Extremities exam: Present: warm, radial pulses palpable and symmetrical. Absent : calf tenderness, cyanotic, pedal edema - Neurological Exam Neurological exam: Present: CN II-XII intact, oriented X3, no focal deficits. Absent: pronater drift, facial droop, speech deficit - Skin Skin exam: Present: dry, intact
--- NOTE | 2017-11-30 19:42 | Electrocardiograph Report ---
[place] [id number] Test Date: 2017-11-29 Pat Name: Clarke Smith Department: 104 Room: [facility] Gender: M Water Safety Teacher: : 1960 Requested By: Harvinder Cuevas Order Number: [id number] Reading MD: Kym Ferrera Measurements Intervals [place] Rate: 69 P: 36 AL: 200 QRS: 51 QRSD: 104 T: 91 QT: 390 QTc: 410 Interpretive Statements SINUS RHYTHM WITH MARKED SINUS ARRHYTHMIA MINIMAL ST DEPRESSION Electronically Signed On 11-30-2017 19:40:25 EST by Kym Ferrera
[2017-12-01 05:17] LABS: Hematocrit 48.2 % (37.5-50.1); Hemoglobin 15.8 g/dL (12.9-16.9); Mean Corpuscular HGB Conc 32.8 g/dL (31.6-35.5); Mean Corpuscular Hemoglobin 27.5 pg (28.0-33.3); Mean Corpuscular Volume 83.8 fL (83.0-100.0); Mean Platelet Volume 10.9 fL (9.4-12.4); Platelet Count 382 K/mcL (140-400); Red Blood Count 5.75 M/mcL (4.19-5.50); Red Cell Distribution Width 13.4 % (11.5-14.5)
[2017-12-01 07:00] VITALS: BP 152/94
--- NOTE | 2017-12-01 08:01 | Event Note ---
Date of Encounter: 12/01/17 Time of Encounter: 08:00 - Cardiology Event Note C yesterday ON CALL PHARMACY TECHNICIAN pRCA. No intervention. Cardiology signing off. Reconsult PRN. Continue ASA, Statin, BB, Imdur. Will coordinate outpt follow-up in 3-4 weeks.
== END 2017-12-01 08:03 | disposition home or self-care (01) ==
LOC: EMEROO 08:24 → 2ANU 08:24
PROVIDERS: ADMIT Internal Medicine; ATTEND Family Medicine